=== PATIENT | female | born 1970 | race Caucasian/White ===

== ENCOUNTER → 2021-05-19 10:19 | Outpatient (BNVA) | payer BC, MEDICAID, SELFPAY | PROVIDERS: PCP Nurse Practitioner Family; Visit Provider Nurse Practitioner Family | DX: I11.0 Hypertensive heart disease with heart failure (principal); I50.9 Heart failure, unspecified; E78.5 Hyperlipidemia, unspecified; Z95.5 Presence of coronary angioplasty implant and graft; E11.59 Type 2 diabetes mellitus with other circulatory complications; N81.4 Uterovaginal prolapse, unspecified | CPT/HCPCS: 80053; 80061; 82043; 83036 ==

== ENCOUNTER → 2021-07-02 15:10 | Outpatient (BNVA) | payer BC, MEDICAID, SELFPAY | PROVIDERS: PCP Nurse Practitioner Family; Referring Provider Nurse Practitioner Family; Visit Provider Obstetrics & Gynecology | DX: R35.0 Frequency of micturition (principal) | CPT/HCPCS: 81000 ==

== ENCOUNTER 2021-09-13 10:32 | Emergency (ER) | payer BC, MEDICAID, SELFPAY ==
[2021-09-13 10:49] VITALS: BP 117/76; PULSE 77; RESP 16; TEMP 36.8; O2SAT 98; BMI 25.3
--- NOTE | 2021-09-13 11:04 | XR_ITS ---
WS: [id number] Exam: XR knee LT 3V* [id number] Date/Time of Exam: 09/13/2021 11:56 AM Reason For Exam: knee pain A total knee prosthesis is in place in satisfactory position. No sign of loosening or fracture. No conrad int effusion noted. No previous studies. XR/XR knee LT 3V* [id number] IMPRESSION: 1. Total knee replacement in satisfactory position without complication.
--- NOTE | 2021-09-13 11:57 | ED_ITS ---
HPI - General Adult General: Chief complaint: Extremity Injury, Lower Stated complaint: Lt Knee pain, hx knee surgery Time Seen by Provider: 09/13/21 11:23 History of Present Illness: Patient is a 51-year-old female with a history of total left knee replacement in 2020, CAD s/p stents x 4 presenting to the emergency room for evaluation of left-sided posterior knee pain. Patient was walking 2 days ago when she report onset of pain. Since then, patient has had difficulty standing on the left leg extending the leg. Patient reports pain in the back of the leg. Patient denies any knee swelling, knee redness, recent fall, or recent injury. Patient denies any leg swelling, chest pain, shortness breath, palpitation, nausea/vomiting, fever/chills, weakness, /GI complaints or any other complaints at this time. Onset:2 days ago Duration:2 days Location:home Severity:moderate Associated symptoms: Deny chest pain, dyspnea, nausea, rash, palpitations or vomiting Review of Systems Const: Denies: fever(s) or chills Eyes: Denies: change in vision ENMT: Denies: mouth pain Card: Denies: chest pain or palpitations Resp: Denies: dyspnea or non-productive cough GI: Denies: abdominal pain, nausea, vomiting or diarrhea : Denies: dysuria Musc: Reports: extremity pain (+L posterior knee pain) Skin/Breast: Denies: rash or new lesions Neuro: Denies: weakness in extremities Psych: Reports: other (Normal mood) Babak/Lymph: Denies: easy bruising PFS ED PFSH: Medical History CHF (congestive heart failure) Hyperlipidemia Hypertension Type 2 diabetes mellitus with cardiac complication Surgical History Hx of heart artery stent Family History Mother CAD (coronary artery disease) Hypertension Father CAD (coronary artery disease) Diabetes Family/Other Breast cancer Maternal aunt Hypertension Maternal aunts and uncles Stroke Maternal aunt Denies family history of Clotting disorder Hyperlipidemia Chronic kidney disease (CKD) Bleeding disorder Social History Smoking and tobacco status: current every day smoker Alcohol intake: never Household members: spouse Marital status: Highest education level completed: High School Graduate service: No Current occupational status: unemployed Physical Exam Const: COMMON NORMALS: alert HENMT: COMMON NORMALS: atraumatic HEAD & SCALP: atraumatic MOUTH: moist mucous membranes not abnormal Eye: COMMON NORMALS: EOMs intact bilaterally and conjunctivae normal CONJUNCTIVA: Yes conjunctivae normal Neck/C-Spine: COMMON NORMALS: full ROM and supple Resp: COMMON NORMALS: normal respiratory effort and clear to auscultation bilaterally AUSCULTATION: clear to auscultation bilaterally Cardio: COMMON NORMALS: regular rate RATE: regular rate GI: COMMON NORMALS: Soft to palpation and non-tender PALPATION: Yes Soft to palpation Extremity: COMMON NORMALS: full ROM NARRATIVE EXTREMITY EXAM: + Full range of motion of left knee, left posterior knee tenderness to palpation, tenderness of the left knee to full extension, no visible knee swelling, erythema, tenderness to palpation anteriorly. Mild tenderness palpation over the posterior aspect of the left knee. Negative Homans' sign, 2+ DP/PT pulses on the left side, sensation and strength intact on the left side. Neuro: SENSORIUM/ORIENTATION: Yes alert MOTOR EXAM: No Abnormal motor stren gth present and Other motor observations present (no focal motor deficits) Psych: COMMON NORMALS: speech normal SPEECH: Yes normal speech MOOD & AFFECT: Yes euthymic mood Course Vital Signs: Vital signs: Vital Signs Temperature 98.3 F 09/13/21 10:49 Pulse Rate 78 09/13/21 13:18 Respiratory Rate 16 09/13/21 13:18 Blood Pressure 114/71 09/13/21 13:18 Pulse Oximetry 97 09/13/21 13:18 [facility] - General Adult Medical Decision Making 51-year-old female with a history of left total knee replacement presenting to the emergency room with left posterior knee pain. Intact range of motion, and no signs of erythema, swelling, or warmth. I do not suspect that this is septic joint. No signs of erythema/warmth//swelling to suggest soft tissue infection. I also do not suspect this is a DVT given the fact that patient has no appropriate risk factors. X-rays intact for any acute findings. I suspect that this is likely bursitis versus muscle strain. No suspicion for septic bursitis given no erythema/fever/leukocytosis. Patient received Tylenol and lidocaine patch with significant improvement in symptoms. Will give patient crutches as well as a knee immobilizer for comfort should patient need it. I have given patient follow up with our medical case manager to be seen by our PCP for evaluation of posterior knee pain. Patient aware of a call from our medical case manager to schedule for appointment(s) and verbalizes understanding of the importance of following up. Rx: Tylenol, lidocaine patch, and menthol PRN pain, knee immobilizer and crutches as needed for comfort Disposition: Discharge. Patient counseled regarding diagnostic impression, treatment plan. Patient given ED strict return precautions to return for continuation, worsening, or development of new symptoms. Instructed to f/u w/ PCP regarding symptoms today. Patient verbalized understanding. Lab Data Radiology Impressions Knee X-Ray 09/13/21 11:04 IMPRESSION: 1. Total knee replacement in satisfactory position without complication. Imaging Data Other Imaging: Radiologist's impression: [address] [address] XRay Report Signed Patient: Yodit Levy Unit #: [id number] : [id number] Age/Sex: 51 / F ADM Date: 09/13/21 Loc: ER Room/Bed: Attending Dr: Ordering Provider/Ordering MD: Tru Fernandes MD Date of Service: 09/13/21 Procedure(s): XR knee LT 3V* [id number] Accession Number(s): [id number] Report Number: [id number] WS: [id number] Exam: XR knee LT 3V* [id number] Date/Time of Exam: 09/13/2021 11:56 AM Reason For Exam: knee pain A total knee prosthesis is in place in satisfactory position. No sign of loosening or fracture. No joint effusion noted. No previous studies. XR/XR knee LT 3V* [id number] IMPRESSION: 1. Total knee replacement in satisfactory position without complication. ? Dictated By: Lam Sky DO Signed By: Lam Sky DO Signed Date/Time: 09/13/21 1243 DD/ 1242 Discharge Plan Discharge Patient Disposition: Home Clinical Impression: Knee pain Condition: Stable Prescriptions: New acetaminophen 500 mg tablet 500 mg PO Q6H PRN (Reason: pain) 5 Days Qty: 20 0RF lidocaine 5 % adhesive patch,medicated 1 patch topical DAILY PRN (Reason: pain) 30 Days Qty: 30 0RF Rx Instructions: leave on most painful area for up to 12 hrs Biofreeze (menthol) 5 % gel 1 ea topical BID PRN (Reason: pain) 10 Days Qty: 1 0RF No Action cetirizine [Zyrtec] 10 mg tablet 10 mg PO DAILY PRN0RF fluticasone propionate [Allergy Relief (fluticasone)] 50 mcg/actuation spray,suspension 1 spray intranasal DAILY 0RF Rx Instructions: administer into each nostril multivitamin Tablet 1 tab PO DAILY 0RF atorvastatin 80 mg tablet 80 mg PO DAILY Qty: 90 1RF clopidogrel 75 mg tablet 75 mg PO DAILY Qty: 90 1RF furosemide 40 mg tablet 40 mg PO DAILY Qty: 90 1RF metoprolol succinate 50 mg tablet extended release 24 hr 50 mg PO DAILY Qty: 90 1RF potassium chloride 20 mEq tablet extended release 20 meq PO DAILY Qty: 90 1RF spironolactone 25 mg tablet 25 mg PO DAILY Qty: 90 1RF hydrocodone-acetaminophen 10-325 mg tablet 1 tab PO Q4H PRN0RF metformin 1,000 mg tablet See Rx Instructions .ROUTE .COMPLEX Qty: 180 0RF Dose Instruction: TAKE 1 TABLET BY MOUTH TWICE DAILY Rx Instructions: TAKE 1 TABLET BY MOUTH TWICE DAILY fenofibrate micronized 134 mg capsule See Rx Instructions .ROUTE .COMPLEX Qty: 30 0RF Dose Instruction: TAKE 1 CAPSULE BY MOUTH DAILY Rx Instructions: TAKE 1 CAPSULE BY MOUTH DAILY Discharge Orders: Discharge ED (Routine); Ordered 09/13/21 Ordered By: Tru Fernandes Referrals: Yanelis Hinojosa FNP [Primary Care Provider] - Discharge Diet: Advance as tolerated Discharge Activity: Increase activity as tolerated Patient Instructions: Knee Pain (ED) Activity Restrictions/Additional Instructions: Please come back to the emergency room you have any further knee pain. Please use warm compresses knee immobilizer and crutches as needed for comfort support. Please follow-up with your primary care provider for reassessment. Come back to the emergency room have any fever or chills, swelling, redness, further pain, or any new or concerning complaints. Stand Alone Forms: Work/School Release Coding Level of Care Code ED Desk Lieutenant for Chg Fwd Exam Comprehensive
[2021-09-13] MEDS: lidocaine 5% Patch 1 PATCH TOPICAL (12:10)
[2021-09-13] MEDS: acetaminophen 500 mg Tablet 1000 MG PO (12:11)
[2021-09-13 12:26] VITALS: BP 124/80; PULSE 67; RESP 16; O2SAT 97
[2021-09-13 13:18] VITALS: BP 114/71; PULSE 78; RESP 16; O2SAT 97
== END 2021-09-13 13:19 | disposition home or self-care (01) ==
PROVIDERS: Emergency Provider Emergency Medicine; PCP Nurse Practitioner Family
DX: M25.562 Pain in left knee (principal); Z96.652 Presence of left artificial knee joint; F17.200 Nicotine dependence, unspecified, uncomplicated; Z79.02 Long term (current) use of antithrombotics/antiplatelets; Z79.84 Long term (current) use of oral hypoglycemic drugs
CPT/HCPCS: 29530; 73562; 99283

== ENCOUNTER → 2021-10-12 08:52 | Outpatient (BNVA) | payer BC, MEDICAID, SELFPAY | PROVIDERS: PCP Nurse Practitioner Family; Referring Provider Nurse Practitioner Family; Visit Provider Orthopaedic Surgery | DX: T84.018A Broken internal joint prosthesis, other site, initial encounter (principal); Y83.8 Other surgical procedures as the cause of abnormal reaction of the patient, or of later complication, without mention of misadventure at the time of the procedure; Z96.659 Presence of unspecified artificial knee joint | CPT/HCPCS: 99203 ==

== ENCOUNTER → 2021-12-10 09:13 | Outpatient (BNVA) | payer BC, MEDICAID, SELFPAY | PROVIDERS: PCP Nurse Practitioner Family; Visit Provider Obstetrics & Gynecology | DX: Z01.812 Encounter for preprocedural laboratory examination (principal); N81.4 Uterovaginal prolapse, unspecified | CPT/HCPCS: 80053; 81000; 85025; 86850; 86900 ==

== ENCOUNTER 2021-12-15 10:52 | Observation (INO) | payer BC, MEDICAID, SELFPAY ==
[2021-12-13 08:48] VITALS: BMI 25.8
--- NOTE | 2021-12-13 09:06 | ANES.PREANE2 ---
Pre-Anesthetic Assessment Height/Weight: Height 1.68 m Weight 72.575 kg Operation Date: 12/15/21 09:15 Proposed Procedures p Anterior and posterior colporrhaphy 15549, single incision sling 44740, sacrospinous fixation 76612,N39.3,N81.4(Not Applicable) - Rigoberto Garrison MD s Posterior Repair Posterior Colporrhaphy(Not Applicable) - Rigoberto Garrison MD s Sling Single Incision Sling(Not Applicable) - Riogberto Garrison MD s Sacrospinous Ligament Suspension(Not Applicable) - Rigoberto Garrison MD Familial anesthetic complications: None Social Tobacco Exam alert, oriented x 3, clear to auscultation bilaterally and regular rate & rhythm Airway Mallampati: Class III Dentition: false and partials Pulmonary Sleep Apnea CV/HEM Coronary Artery Disease (4 stents all > 1 year ago, holding plavix), Hypertension and Myocardial Infarction able to achieve > 4 METS without sob or CP None reported Hepatic None reported GI None reported Metabolic Diabetes Mellitus and Hyperlipidemia [facility] None reported Neuropsych None reported Anesthetic Plan ASA status: 3 Anesthesia: General Risk of > 500 ml blood loss (7ml/kg in children): No Medications/Allergies Home Medications Medication Instructions Recorded Confirmed Last Taken Type cetirizine 10 mg tablet (Zyrtec) 10 mg PO DAILY PRN 05/19/21 12/13/21 Unknown History fluticasone propionate 50 1 spray INTRANASAL DAILY 05/19/21 12/13/21 Unknown History mcg/actuation nasal spray,suspension (Allergy Relief (fluticasone)) furosemide 40 mg tablet 40 mg PO DAILY #90 tab 05/19/21 12/13/21 Unknown Rx multivitamin 1 tab PO DAILY 05/19/21 12/13/21 Unknown History metformin 1,000 mg tablet See Rx Instructions .ROUTE 08/02/21 12/13/21 Unknown Rx .COMPLEX #180 tab hydrocodone 10 mg-acetaminophen 1 tab PO Q4H PRN 5 Days #20 tab 10/13/21 12/13/21 Unknown Rx 325 mg tablet fenofibrate micronized 134 mg See Rx Instructions .ROUTE 10/19/21 12/13/21 Unknown Rx capsule .COMPLEX #30 cap metoprolol succinate 50 mg See Rx Instructions .ROUTE 11/22/21 12/13/21 Unknown Rx tablet,extended release 24 hr .COMPLEX #90 tab potassium chloride 20 mEq See Rx Instructions .ROUTE 11/22/21 12/13/21 Unknown Rx tablet,extended release .COMPLEX #90 tab spironolactone 25 mg tablet See Rx Instructions .ROUTE 11/22/21 12/13/21 Unknown Rx .COMPLEX #90 tab atorvastatin 80 mg tablet See Rx Instructions .ROUTE 11/23/21 12/13/21 Unknown Rx .COMPLEX #90 tab aspirin 81 mg tablet 81 mg PO DAILY 12/13/21 12/13/21 12/08/21 History clopidogrel 75 mg tablet (Plavix) See Rx Instructions .ROUTE .COMPLEX 12/13/21 12/13/21 12/08/21 History nitroglycerin 0.4 mg sublingual 0.4 mg SUBLINGUAL Q5M PRN 12/13/21 12/13/21 Unknown History tablet Allergies Allergy/AdvReac Type Severity Reaction Status Date / Time lisinopril Allergy coughing Verified 12/10/21 08:03 Penicillins Allergy nausea Verified 12/10/21 08:03 adhesives Allergy peels Uncoded 12/10/21 08:04 skin, burn [facility] Anesthesia Medical History CHF (congestive heart failure) DJD (degenerative joint disease), cervical DJD (degenerative joint disease), lumbar Hyperlipidemia Hypertension Type 2 diabetes mellitus with cardiac complication Surgical History Hx of heart artery stent Family History Mother CAD (coronary artery disease) Hypertension Father CAD (coronary artery disease) Diabetes Family/Other Breast cancer Maternal aunt Hypertension Maternal aunts and uncles Stroke Maternal aunt Denies family history of Clotting disorder Hyperlipidemia Chronic kidney disease (CKD) Bleeding disorder Social History Smoking and tobacco status: current every day smoker Alcohol intake: never Household members: spouse Marital status: Highest education level completed: High School Graduate service: No Current occupational status: unemployed Data Anesthesia Cardiac Studies: No Data to Display
[2021-12-15] VITALS (16 sets, daily range): BP systolic 106–157; BP diastolic 62–95; PULSE 65–100; RESP 14–19; TEMP 36.4–36.9; O2SAT 92–100
[2021-12-15] MEDS: sodium chloride 0.9% 500 ML IV (08:22)
[2021-12-15 08:23] LABS: Glucose Point of Care 126 mg/dL (70-110)
[2021-12-15] MEDS: scopolamine 1.5 Patch 1 PATCH TRANSDERMA (08:23)
[2021-12-15] MEDS: enoxaparin 30 mg/0.3 mL Syringe SUBCUT (08:24)
--- NOTE | 2021-12-15 08:58 | P.ANESUD_ITS ---
Pre-Anesthetic Update Pre-Anesthetic Assessment: Date of Surgery/Procedure: 12/15/21 Preop Krystyna gnosis: Vaginal vault prolapse Proposed Procedure: Operation Date: 12/15/21 09:15 Proposed Procedures p Anterior and posterior colporrhaphy 63481, single incision sling 40906, sacrospinous fixation 89545,N39.3,N81.4(Not Applicable) - Rigoberto Garrison MD s Posterior Repair Posterior Colporrhaphy(Not Applicable) - Rigoberto Garrison MD s Sling Single Incision Sling(Not Applicable) - Rigoberto Garrison MD s Sacrospinous Ligament Suspension(Not Applicable) - Rigoberto Garrison MD Any changes to Pre-Anesthetic Assessment?: No Last Intake: Intake Last Liquid Date 12/14/21 Last Liquid Time 23:00 Last Solid Date 12/14/21 Last Solid Time 19:00 Vitals: Temperature Source Temporal Artery S can 12/15/21 07:59 Pulse Rate 65 12/15/21 07:59 Pulse Rhythm 12/15/21 07:59 Pulse Strength 3+ Normal 12/15/21 07:59 Respiratory Rate 18 12/15/21 07:59 Blood Pressure 148/79 12/15/21 07:59 Blood Pressure Liya n 102 12/15/21 07:59 Pulse Oximetry 99 12/15/21 07:59 Oxygen Delivery Me thod 12/15/21 07:59 Exam: Pre-Anes Outpt Exam: alert, oriented x 3, clear to auscultation bilaterally and regular rate & rhythm Cardiac Studies: No Data to Display
--- NOTE | 2021-12-15 08:59 | W.PM.OPSUD ---
Surgery/Procedure H&P Update DATE OF PROCEDURE: December 15, 2021 DATE H&P PERFORMED: 12/10/21 H&P UPDATE INFORMATION: I have reviewed H&P completed within last 30 days, I have examined patient prior to procedure and No changes to prior documentation PREOP DIAGNOSIS: Vaginal vault prolapse PLANNED PROCEDURE: Operation Date: 12/15/21 09:15 Proposed Procedures p Anterior and posterior colporrhaphy 25677, single incision sling 28592, sacrospinous fixation 99306,N39.3,N81.4(Not Applicable) - Rigoberto Garrison MD s Posterior Repair Posterior Colporrhaphy(Not Applicable) - Rigoberto Garrison MD s Sling Single Incision Sling(Not Applicable) - Rigoberto Garrison MD s Sacrospinous Ligament Suspension(Not Applicable) - Rigoberto Garrison MD
[2021-12-15] MEDS: sodium chloride 0.9% 1,000 ML 30 ML IV (09:08)
[2021-12-15] MEDS: vancomycin 1,000 MG in sodium chloride 0.9% 250 ML 250 MG IV (09:08)
[2021-12-15] MEDS: estrogens Conjugated Cream 30 gm 1 APPLIC VAGINAL (09:52)
--- NOTE | 2021-12-15 10:47 | PM.OP ---
Operative Report Date of procedure: December 15, 2021 Pre-op diagnosis: Preop Diagnosis Vaginal vault prolapse Post-op diagnosis: Cystocele stage III. Urethral hypermobility. Stress incontinence Cystoscopy Procedure done: Anterior colporrhaphy augmented with allograft. Single incision mid urethral sling Implants: Coloplast Altis single incision mid urethral sling. Coloplast allograft. Surgeon: Rigoberto Garrison MD Estimated blood loss (mL): 100 IV fluids (mL): 1,200 Urine output (mL): 400 Complications: none Findings: Cystocele Procedure: After obtaining informed consent, the patient was taken to the operating room and placed in the supine position, given general anesthesia, and prepped and draped in sterile fashion. The abdomen, vulva and vagina were prepped and draped in a sterile manner. A time out procedure was performed. The anterior vaginal mucosa beneath the midurethra was infiltrated with 0.5% Marcaine with epinephrine. A vertical midline incision was made beneath the midurethra, nearly 1.5 cm length. Careful submucosal dissection was performed bilaterally up to the interior portion of the inferior pubic ramus. The insertion of adductor longus tendon on the patient?s pubic ramus was identified as reference land altagracia. Palpated the notch along the internal edge of ischiopubic ramus where the adductor longus tendon and the inferior pubic ramus meet. The Altis single incision sling (SIS) was selected. Then the needle of the SIS inserted aiming at the location of this notch. One of the integrated self-fixating tips place onto the needle by sliding it over the end of the needle. The needle/sling assembly was inserted toward the location of identified reference notch making sure that the flat of the handle is perpendicular to the desired path. The needle was tracked along the posterior surface of the ischiopubic ramus until the midline altagracia on the mesh is approximately at the midline position under the urethra. The needle was removed and the same was repeated on the contralateral side until the appropriate sling tension under the urethra was achieved ensuring that the mesh lays flat. The needle was removed and vaginal incision was closed in a running interlocking fashion with 2-0 Vicryl. The vaginal mucosa was then injected in the midline with normal saline. The vaginal mucosa was scored in the midline with the Bovie approximately 1 cm medial to the urethral meatus to 1 cm distal to the vaginal cuff. This vaginal mucosa was then undermined and then incised in the midline with the Metzenbaum scissors. The lateral aspects of the vaginal mucosa were then grasped with the Allis clamps and the vaginal mucosa was then dissected off the underlying fascia with the Metzenbaum scissors. Again, there was noted to be quite a bit of oozing at the incision, which was controlled with cautery. After adequate dissection was performed, bilaterally. The Coloplast derma allograft was modified at time of application to fit spacea, 3 x 3 cm piece . Coloplast allograft was placed in front of cystocele ready to be implanted and Suture in placed at distal end of graft and placed towards vaginal cuff with 3O PDS. Final suture is placed on proximal portion of the graft to complete the placement overlying the bladder. Then Interrupted vertical mattress sutures of 0 Vicryl were used to elevate the cystocele superiorly. The excessive vaginal mucosa was then trimmed with the Metzenbaum scissors and the vaginal mucosa was then reapproximated in the running interlocking fashion with 2-0 Vicryl. Then the Nguyen catheter was removed and cystoscope was inserted. The bladder was filled with sterile water. Complete evaluation of the bladder mucosa was performed noting no lacerations, dimpling, tears, bleeding of the mucosa or muscular layers. Both ureteral orifices were identified. Prompt excretion of urine from both ureteral orifices was noted. Cystoscope was withdrawn. The Nguyen catheter was replaced. Excellent hemostasis was obtained. A vaginal pack is placed overnight as postoperative support for the vaginal tissues after graft placement and closure of vaginal incisions. Sponge, lap, needle, and instrument counts were correct times three. The patient was taken to the recovery room, awake and in stable condition.
--- NOTE | 2021-12-15 11:06 | SUR.PHASEI ---
1053 PT TO PACU 3 PT AWAKE ALERT ORIENTED TO NAME, IV TO RT AC #20 WITH NS 500ML UP AT KVO RATE, PT VERBALLY DENIES PAIN AND NAUSEA, PT WITH GOOD RESP EFFORT NOTED MONITOR WITH SR NO ECTOPY, ANDRES CATHETER TO DD WITH LT BLUE URINE NOTED STAT LOCK TO RT INNER THIGH, BILAT SCDS ON AND WORKING, ID BRACELET TO LT WRIST PT ID'D WITH 2 IDENTIFIERS [id number] PT ON RA PT CONTINUES TO DENIE PAIN AND NAUSEA, VSS UNCHANGED ABDOMEN SOFT VAGINAL PACKING IN PLACE
--- NOTE | 2021-12-15 11:15 | SUR.PHASEI ---
ANDRES CATHETER PATENT OF LT BLUE URINE, NOTED TO TUBING AND BAG, NO URETHRAL TENSION OR DRAINAGE NOTED.
--- NOTE | 2021-12-15 11:31 | SUR.PHASEI ---
1121 FAMILY UPDATED IN WR, WILL WALK UP WITH PT , PT TO FLOOR OB 12 PER CART WITH 2 RNS. PT AWAKE ALERT TALKATIVE TAKING OCC ICE CHIPS/ VSS.ABOMEN SOFT NO VAGINAL BLEEDING NOTED ANDRES PATENT
[2021-12-15] MEDS: ketorolac 30 mg/mL INJ IVP ×2 (11:46→18:44)
--- NOTE | 2021-12-15 13:42 | ANE.PACU2 ---
Inpatient post-anesthesia follow up: Airway intact: Yes Vital signs: Temperature 97.8 F Pulse Rate 69 Respiratory Rate 17 Blood Pressure 116/71 Pulse Oximetry 98 Oxygen Delivery Me thod Room Air Oxygen Flow Rate 8 Fraction of Inspir ed Oxygen Hydration adequate: Yes Nausea and vomiting: No Pain level: 1 Mental status: Baseline
[2021-12-15] MEDS: docusate sodium 100 mg Capsule PO (17:20)
[2021-12-15] MEDS: dextrose 5%-lactated ringers 1,000 ML 125 ML IV (17:21)
[2021-12-15] MEDS: HYDROcodone-acetaminophen 5-325 mg Tablet PO (22:51)
[2021-12-16] MEDS: ketorolac 30 mg/mL INJ IVP (01:11)
[2021-12-16] MEDS: dextrose 5%-lactated ringers 1,000 ML 125 ML IV (01:15)
[2021-12-16 05:45] VITALS: BP 108/68; PULSE 72; RESP 16; TEMP 36.7
[2021-12-16 06:02] LABS: Hematocrit 29.2 % (37.0-47.0); Hemoglobin 10.2 g/dL (11.5-15.3); Mean Corpuscular HGB Conc 34.9 g/dL (30.0-36.0); Mean Corpuscular Hemoglobin 30.6 pg (28.0-34.0); Mean Corpuscular Volume 87.7 fl (81-99); Mean Platelet Volume 10.6 fL (7.4-10.4); Platelet Count 254 10^3/cmm (130-400); Red Blood Count 3.33 10^6/uL (4.1-5.3); Red Cell Distribution Width 12.2 % (12.1-15.1); White Blood Count 12.7 10^3/uL (4.0-10.0)
[2021-12-16] MEDS: docusate sodium 100 mg Capsule PO (09:09)
[2021-12-16] MEDS: HYDROcodone-acetaminophen 5-325 mg Tablet PO (09:10)
[2021-12-16 10:00] VITALS: BP 125/73; PULSE 65; RESP 16; TEMP 36.6; TEMP 36.7; O2SAT 99
--- NOTE | 2021-12-16 10:27 | P.DS_ITS ---
Discharge Providers CENTER PUNCH OPERATOR Date of Admission: 12/15/21 10:52 Date of Discharge: 12/16/21 Attending Provider at Admission: Rigoberto Garrison MD Attending Provider at Discharge: Rigoberto Garrison MD Primary Care Provider: [facility] Hospital Course Mrs. Valdovinos 51-year-old female admitted for planned anterior colporrhaphy augmented with allograft, single incision mid urethral sling, possible posterior colporrhaphy and sacrospinous fixation. An anterior colporrhaphy augmented with allograft with single incision mid urethral sling was performed without complications. Overnight observation was uneventful. She is afebrile hemod ynamically stable postoperative day 1. PVR within normal limits. Tolerating diet well. Ambulating without difficulty. Physical Exam Narrative: GA: Alert and oriented ?3. HEENT: WNL. Heart: Regular rate and rhythm. Lungs: Clear to auscultation bilaterally. Abdomen: Bowel sounds present, nontender. EPIDEMIOLOGY INTERN: Scanty bleeding. Extremities: No edema, no cyanosis, no calves pain. Urinary Catheter Management: Nguyen: Cath Placed During This Visit: yes, but has since been removed by the nurse Reason for Continuing Indwelling Catheter: Decision to DC Catheter Urinary Catheter Date of Insertion: 12/15/21 Urinary Catheter Time of Insertion: 09:41 Date Urinary Catheter Removed: 12/16/21 Time Urinary Catheter Discontinued: 06:01 History History History 3 Term 2 Miscarriages/Ectopic 1 0 Living Children 2 Discharge Data Studies Completed and Pending Pending at discharge Category Date Time Status ES surgery / GI images Routine Exams 12/15/21 09:44 Taken Laboratory Results WBC 12.7 10^3/uL (4.0-10.0) H 12/16/21 05:56 Corrected WBC Cancelled 12/16/21 05:39 RBC 3.33 10^6/uL (4.1-5.3) L 12/16/21 05:56 Hgb 10.2 g/dL (11.5-15.3) L 12/16/21 05:56 Hct 29.2 % (37.0-47.0) L 12/16/21 05:56 MCV 87.7 fl (81-99) 12/16/21 05:56 MCH 30.6 pg (28.0-34.0) 12/16/21 05:56 MCHC 34.9 g/dL (30.0-36.0) 12/16/21 05:56 RDW 12.2 % (12.1-15.1) 12/16/21 05:56 Plt Count 254 10^3/cmm (130-400) 12/16/21 05:56 MPV 10.6 fL (7.4-10.4) H 12/16/21 05:56 POC Glucose 126 mg/dL (70-110) H 12/15/21 08:17 Procedures Performed Anterior colporrhaphy augmented with allograft. Single incision mid urethral sling. Cystoscopy. Vitals Last Vital Signs Temp 98.0 F 12/16/21 05:45 Pulse 72 12/16/21 05:45 Resp 16 12/16/21 05:45 BP 108/68 12/16/21 05:45 Pulse Ox 94 12/15/21 18:45 Discharge Plan Discharge Patient Disposition: Home Condition: Stable Prescriptions: New hydrocodone-acetaminophen 5-325 mg tablet 1 tab PO Q4H PRN (Reason: pain) Qty: 20 0RF acetaminophen 325 mg capsule 325 mg PO Q4H PRN (Reason: fever or pain) Qty: 60 0RF ibuprofen 800 mg tablet 800 mg PO TID PRN (Reason: pain) Qty: 60 0RF docusate sodium [Colace] 100 mg capsule 100 mg PO BID Qty: 60 0RF Continued cetirizine [Zyrtec] 10 mg tablet 10 mg PO DAILY PRN (Reason: Allergy Symptoms) 0RF fluticasone propionate [Allergy Relief (fluticasone)] 50 mcg/actuation spray,suspension 1 spray intranasal DAILY 0RF Rx Instructions: administer into each nostril multivitamin Tablet 1 tab PO DAILY 0RF furosemide 40 mg tablet 40 mg PO DAILY Qty: 90 1RF hydrocodone-acetaminophen 10-325 mg tablet 1 tab PO Q4H PRN (Reason: pain) 5 Days Qty: 20 0RF metformin 1,000 mg tablet See Rx Instructions .ROUTE .COMPLEX Qty: 180 0RF Dose Instruction: TAKE 1 TABLET BY MOUTH TWICE DAILY Rx Instructions: TAKE 1 TABLET BY MOUTH TWICE DAILY fenofibrate micronized 134 mg capsule See Rx Instructions .ROUTE .COMPLEX Qty: 30 0RF Dose Instruction: TAKE 1 CAPSULE BY MOUTH DAILY Rx Instructions: TAKE 1 CAPSULE BY MOUTH DAILY metoprolol succinate 50 mg tablet extended release 24 hr See Rx Instructions .ROUTE .COMPLEX Qty: 90 0RF Dose Instruction: TAKE 1 TABLET BY MOUTH DAILY Rx Instructions: TAKE 1 TABLET BY MOUTH DAILY spironolactone 25 mg tablet See Rx Instructions .ROUTE .COMPLEX Qty: 90 0RF Dose Instruction: TAKE 1 TABLET BY MOUTH DAILY Rx Instructions: TAKE 1 TABLET BY MOUTH DAILY potassium chloride 20 mEq tablet extended release See Rx Instructions .ROUTE .COMPLEX Qty: 90 0RF Dose Instruction: TAKE 1 TABLET BY MOUTH DAILY Rx Instructions: TAKE 1 TABLET BY MOUTH DAILY atorvastatin 80 mg tablet See Rx Instructions .ROUTE .COMPLEX Qty: 90 0RF Dose Instruction: TAKE 1 TABLET BY MOUTH DAILY Rx Instructions: TAKE 1 TABLET BY MOUTH DAILY nitroglycerin 0.4 mg Tablet, Sublingual 0.4 mg SUBLINGUAL Q5M PRN (Reason: chest pain) 0RF Rx Instructions: do not exceed 3 doses per episode aspirin 81 mg Tablet 81 mg PO DAILY 0RF Plavix 75 mg tablet See Rx Instructions .ROUTE .COMPLEX 0RF Rx Instructions: TAKE 1 TABLET BY MOUTH DAILY Discharge Orders: Discharge Order (Routine); Ordered 12/16/21 Ordered By: Rigoberto Garrison Referrals: Rigoberto Garrison MD [Physician] - 12/28/21 2:15 pm (your two week ) Discharge Diet: Usual diet Discharge Activity: Limit activity as instructed Patient Instructions: Cystoscopy (GEN), Bladder Sling for Women (GEN), Anterior Vaginal Repair (GEN), Posterior Vaginal Repair (GEN), OB Discharge Report, OB Food/Drug Interaction Guide, Opioid Safety Activity Restrictions/Additional Instructions: 1. Please call [facility] on next working day to make your post-operative appointment in 2 weeks. 2. Please stay home until you come back to the clinic on first post-operative check up. 3. Please follow instructions on your medications CAREFULLY. 4. If you have abdominal incision, do not cover it unless dressing is necessary because of drainage. OK to shower, but avoid bath. Leave steri-strips until they fall off. If they are still on one week after surgery, you may remove them. 5. If you had vaginal surgery or vaginal repair, Dr. Garrison may instruct you to take SITZ bath. 6. Yellow, blood tinged odorous vaginal discharge is usually normal after hysterectomy or vaginal surgeries. 7. No sexual intercourse, tampons, or douches until you are completely released from the post-operative care. 8. Avoid constipation by eating right and maybe using some Metamucil or Milk of Magnesia. 9. All prescription refills are given during the working hours. Please do no wait till it runs out. Call the clinic at [phone] before your medication runs out. The clinic will get in touch with your doctor to prescribe medications if necessary. 10. Please remain within 40 mile radius from our hospital because emergencies do happen now and then during the post-operative period. 11. If you have stairs at home, take one step at a time slowly and minimize the number of trips. It helps to stay in one floor for the next few days. No lifting except what you can lift by one hand until you are released from the post-operative care. 12. Driving is discouraged until you are well healed. It may be 3-4 weeks before you feel strong enough to drive. You should be able to turn and look through the rear window without pain and you should be able to push the brake pedal very hard without pain before you drive. No fast rules, but SAFETY should be your primary concern. DO NOT drive if you are on sedating medications such as narcotics. 13. Call the clinic (during working hours) to make urgent appointment or go to the Emergency room, if any of the following occurs: i. Vaginal bleeding becomes heavy, more than a period. ii. Incision becomes red and sore, or drains pus. iii. Your temperature is over 100.4 or you have chill. iv. IV site becomes red and swollen (a little ``knot?? is usually OK) v. Persistent nausea and vomiting vi. Persistent constipation or diarrhea vii. Rash or allergic reaction to medications. Discharge Attestations CENTER PUNCH OPERATOR Time Spent in Discharge Care*: greater than 30 min Coding Level of Care Code Acute Art Educator for Naveen Rincon
[2021-12-16] MEDS: acetaminophen 325 mg Tablet 650 MG PO (11:22)
[2021-12-16 12:31] VITALS: BP 116/67; PULSE 63; RESP 17; TEMP 37.1; O2SAT 99
== END 2021-12-16 12:30 | disposition home or self-care (01) ==
LOC: OBGYN 10:58
PROVIDERS: Admitting Provider Obstetrics & Gynecology; PCP Nurse Practitioner Family; Visit Provider Obstetrics & Gynecology
PROC: 0JQC0ZZ Repair Pelvic Region Subcutaneous Tissue and Fascia, Open Approach (ICD-10-PCS; CPT 57240; principal; 2021-12-15 09:05)
PROC: (CPT 57250; 2021-12-15 09:05)
PROC: (CPT 57288; 2021-12-15 09:05)
PROC: 0TJB8ZZ Inspection of Bladder, Via Natural or Artificial Opening Endoscopic (ICD-10-PCS; CPT 52000; 2021-12-15 09:05)
DX: N81.10 Cystocele, unspecified (principal); N36.41 Hypermobility of urethra; N39.3 Stress incontinence (female) (male); I25.10 Atherosclerotic heart disease of native coronary artery without angina pectoris; Z95.5 Presence of coronary angioplasty implant and graft; I10 Essential (primary) hypertension; I25.2 Old myocardial infarction; E11.9 Type 2 diabetes mellitus without complications; E78.5 Hyperlipidemia, unspecified; Z79.82 Long term (current) use of aspirin; F17.210 Nicotine dependence, cigarettes, uncomplicated
CPT/HCPCS: 57240; 57267; 57288; 36415; 36416; 51798; 82962; 85027; C1713; C1762; G0378; J0330; J1100; J1170; J1200; J1650; J1885; J2370; J2405; J2704; J2710; J3010; J3370; J3490; J7030; J7040; J7050; Q9968

== ENCOUNTER 2021-12-20 16:37 | Emergency (ER) | payer BC, MEDICAID, SELFPAY ==
--- NOTE | 2021-12-20 17:03 | XRR_ITS ---
PROCEDURE INFORMATION: Exam: XR Right Knee Exam date and time: 12/20/2021 5:12 PM Age: 51 years old Clinical indication: Pain; Knee; Right; Additional info: Fall with right knee pain TECHNIQUE: Imaging protocol: Radiologic exam of the Right knee. Views: 3 views. COMPARISON: No relevant prior studies available. FINDINGS: Bones/joints: Osseous structures are intact. Negative for fracture. Moderate DJD centered within the medial compartment. Moderate volume joint effusion. Soft tissues: Normal. XR/XR knee RT 3V* [id number] IMPRESSION: No acute findings. Moderate DJD centered within the medial compartment with moderate volume joint effusion.
[2021-12-20 17:05] VITALS: BP 112/63; PULSE 89; RESP 16; TEMP 36.4; O2SAT 97; BMI 25.8
--- NOTE | 2021-12-20 17:39 | ED_ITS ---
HPI - Fall General: Chief Complaint: Fall Stated Complaint: Fell Rt Knee Pain Time Seen by Provider: 12/20/21 17:13 History of Present Illness: Patient is a 51-year-old female comes to the ED with right knee injury. Injury occurred yesterday. Patient was walking down some steps and accidentally fell twisting her right knee. She denies any head trauma or any loss of consciousness. She had a mild swelling in her right knee and 10 out of 10 pain. She is unable to straighten right knee due to pain and says weightbearing causes worsening pain. Associated symptoms-after fall: Denies abdominal pain, chest pain, headache(s), hematuria or neck pain Review of Systems Const: Denies: fever(s), chills or fatigue Eyes: Denies: change in vision or eye discomfort ENMT: Denies: throat pain, odynophagia, nasal discharge or nasal congestion Card: Denies: chest pain, palpitations, edema, swelling of feet/ankles, dyspnea on exertion or orthopnea Resp: Denies: dyspnea, productive cough or non-productive cough GI: Denies: abdominal pain, nausea, vomiting, diarrhea, constipation or hematochezia : Denies: flank pain, dysuria or hematuria Musc: Reports: extremity pain (Right knee), extremity swelling (Right knee), joint swelling (Right knee) and limited range of motion (Right knee); Denies: neck pain or back pain Skin/Breast: Denies: rash or new lesions Neuro: Denies: headache(s), numbness in extremities or weakness in extremities PFS ED PFSH: Medical History CHF (congestive heart failure) DJD (degenerative joint disease), cervical DJD (degenerative joint disease), lumbar Hyperlipidemia Hypertension Type 2 diabetes mellitus with cardiac complication Surgical History Hx of heart artery stent Family History Mother CAD (coronary artery disease) Hypertension Father CAD (coronary artery disease) Diabetes Family/Other Breast cancer Maternal aunt Hypertension Maternal aunts and uncles Stroke Maternal aunt Denies family history of Clotting disorder Hyperlipidemia Chronic kidney disease (CKD) Bleeding disorder Social History Smoking and tobacco status: current every day smoker Alcohol intake: never Household members: spouse Marital status: Highest education level completed: High School Graduate service: No Current occupational status: unemployed Physical Exam Const: COMMON NORMALS: no acute distress, patient oriented x3, healthy appearing and alert GENERAL APPEARANCE: cooperative and comfortable HENMT: COMMON NORMALS: normocephalic HEAD & SCALP: normocephalic MOUTH: Normal oral and palatal mucosa present THROAT: posterior oropharynx normal and uvula midline Neck/C-Spine: COMMON NORMALS: supple GENERAL: Yes normal visual inspection Resp: COMMON NORMALS: normal respiratory effort, No retractions, No use of accessory muscles and clear to auscultation bilaterally AUSCULTATION: clear to auscultation bilaterally Cardio: COMMON NORMALS: regular rate, regular rhythm, S1 normal heart sound present, S2 normal heart sound present, No gallops present (Cardio), No clicks present (Cardio), No murmurs present (Cardio) and Peripheral pulses 2+ throughout RATE: regular rate RHYTHM: regular rhythm HEART SOUNDS: S1 normal heart sound present and S2 normal heart sound present PERIPHERAL PULSES: Peripheral pulses 2+ throughout GI: COMMON NORMALS: Normal to inspection, nondistended, normoactive bowel sounds present, Soft to palpation, non-tender and no masses PALPATION: Yes Soft to palpation : COMMON NORMALS: Yes no CVA tenderness BLADDER/KIDNEY EXAM: Yes no CVA tenderness Back/Pelvis: COMMON NORMALS: no CVA tenderness Extremity: NARRATIVE EXTREMITY EXAM: Right knee?generalized swelling throughout knee, tenderness throughout knee, limited range of motion especially extension of knee due to pain. Neurovascular intact distally. Neuro: COMMON NORMALS: patient oriented x3 and moves all extremities SENSORIUM/ORIENTATION: Yes alert Skin: GENERAL SKIN EXAM: dry skin Course Vital Signs: Vital signs: Vital Signs Temperature 97.5 F L 12/20/21 17:05 Pulse Rate 89 12/20/21 17:05 Respiratory Rate 16 12/20/21 17:05 Blood Pressure 112/63 12/20/21 17:05 Pulse Oximetry 97 12/20/21 17:05 MDM - Fall Medical Decision Making Patient is a 51-year-old female comes to the ED with right knee injury. Injury occurred yesterday. Patient was walking down some steps and accidentally fell twisting her right knee. Vitals are stable. Right knee?generalized swelling throughout knee, tenderness throughout knee, limited range of motion especially extension of knee due to pain. Neurovascular intact distally. X-ray of right knee showed no acute findings. moderate joint effusion and moderate DJD seen on x-ray. Patient was stable for discharge home. I placed an order with case management for patient to be referred to Dr. Sy for follow-up on right knee injury. Patient was discharged home with crutches and told to limit weightbearing until seen by Ortho. Rest, ice and elevate right knee. Return ED precautions given. Patient understood and agreed with plan. Lab Data Radiology Impressions Knee X-Ray 12/20/21 17:03 IMPRESSION: No acute findings. Moderate DJD centered within the medial compartment with moderate volume joint effusion. Discharge Plan Discharge Patient Disposition: Home Clinical Impression: Injury of knee, right Qualifiers: Encounter type: initial encounter Qualified Code(s): S89.91XA - Unspecified injury of right lower leg, initial encounter Joint effusion of knee Qualifiers: Laterality: right Qualified Code(s): M25.461 - Effusion, right knee Condition: Stable Prescriptions: No Action cetirizine [Zyrtec] 10 mg tablet 10 mg PO DAILY PRN (Reason: Allergy Symptoms) 0RF fluticasone propionate [Allergy Relief (fluticasone)] 50 mcg/actuation spray,suspension 1 spray intranasal DAILY 0RF Rx Instructions: administer into each nostril multivitamin Tablet 1 tab PO DAILY 0RF furosemide 40 mg tablet 40 mg PO DAILY Qty: 90 1RF hydrocodone-acetaminophen 10-325 mg tablet 1 tab PO Q4H PRN (Reason: pain) 5 Days Qty: 20 0RF metformin 1,000 mg tablet See Rx Instructions .ROUTE .COMPLEX Qty: 180 0RF Dose Instruction: TAKE 1 TABLET BY MOUTH TWICE DAILY Rx Instructions: TAKE 1 TABLET BY MOUTH TWICE DAILY fenofibrate micronized 134 mg capsule See Rx Instructions .ROUTE .COMPLEX Qty: 30 0RF Dose Instruction: TAKE 1 CAPSULE BY MOUTH DAILY Rx Instructions: TAKE 1 CAPSULE BY MOUTH DAILY metoprolol succinate 50 mg tablet extended release 24 hr See Rx Instructions .ROUTE .COMPLEX Qty: 90 0RF Dose Instruction: TAKE 1 TABLET BY MOUTH DAILY Rx Instructions: TAKE 1 TABLET BY MOUTH DAILY spironolactone 25 mg tablet See Rx Instructions .ROUTE .COMPLEX Qty: 90 0RF Dose Instruction: TAKE 1 TABLET BY MOUTH DAILY Rx Instructions: TAKE 1 TABLET BY MOUTH DAILY potassium chloride 20 mEq tablet extended release See Rx Instructions .ROUTE .COMPLEX Qty: 90 0RF Dose Instruction: TAKE 1 TABLET BY MOUTH DAILY Rx Instructions: TAKE 1 TABLET BY MOUTH DAILY atorvastatin 80 mg tablet See Rx Instructions .ROUTE .COMPLEX Qty: 90 0RF Dose Instruction: TAKE 1 TABLET BY MOUTH DAILY Rx Instructions: TAKE 1 TABLET BY MOUTH DAILY nitroglycerin 0.4 mg Tablet, Sublingual 0.4 mg SUBLINGUAL Q5M PRN (Reason: chest pain) 0RF Rx Instructions: do not exceed 3 doses per episode aspirin 81 mg Tablet 81 mg PO DAILY 0RF Plavix 75 mg tablet See Rx Instructions .ROUTE .COMPLEX 0RF Rx Instructions: TAKE 1 TABLET BY MOUTH DAILY ibuprofen 800 mg tablet 800 mg PO TID PRN (Reason: pain) Qty: 60 0RF hydrocodone-acetaminophen 5-325 mg tablet 1 tab PO Q4H PRN (Reason: pain) Qty: 20 0RF Colace 100 mg capsule 100 mg PO BID Qty: 60 0RF acetaminophen 325 mg capsule 325 mg PO Q4H PRN (Reason: fever or pain) Qty: 60 0RF Discharge Orders: Discharge ED (Routine); Ordered 12/20/21 Ordered By: Bubba Uriarte Referrals: Yanelis Hinojosa FNP [Primary Care Provider] - Discharge Diet: Regular Discharge Activity: Limit activity as instructed and Use walker/crutches as instructed Patient Instructions: Knee Pain (ED), Swollen Joint (ED) Activity Restrictions/Additional Instructions: Follow-up with medical provider as directed. Case management should be counting in the next 7 days set up appoint with Dr. Sy for evaluation of right knee injury. Limit weightbearing and use crutches to help with ambulation. Rest, ice and elevate right knee. Return to the ER or your medical provider if condition worsens. Please read and understand discharge instructions. Thank you for choosing [facility] for your healthcare needs today. Please realize this is an emergency room and that we are providing you with a medical screening exam and this may not be complete and all inclusive of all the testing and or work up that you may need to determine your ailment or severity of your illness. It is very important that you follow up as instructed or that you return to the Emergency Department should you have concerns or if your condition changes or worsens in any way. Coding Level of Care Code ED Forensic Science Technician for Chg Fwd Exam Comprehensive
[2021-12-20] MEDS: HYDROcodone-acetaminophen 7.5-325 mg Tablet 1 TAB PO (17:50)
--- NOTE | 2021-12-21 07:20 | DCPLANNER ---
Addendum entered by Theodora Ching 01/10/22 14:07: Patient had a follow up appointment scheduled for 12.24.21 with Judd Lopez at ortho - patient did attend appointment. Original Note: manager hematology had message to schedule a follow up appointment for patient with ortho. manager hematology sent patients information to the front office staff at ortho. Patients information will be printed and reviewed. Clinic will call patient with appointment information.
== END 2021-12-20 18:23 | disposition home or self-care (01) ==
PROVIDERS: Emergency Provider Physician Assistant; PCP Nurse Practitioner Family
DX: M25.461 Effusion, right knee (principal); Z79.84 Long term (current) use of oral hypoglycemic drugs; Z79.02 Long term (current) use of antithrombotics/antiplatelets; Z79.82 Long term (current) use of aspirin; I11.0 Hypertensive heart disease with heart failure; I50.9 Heart failure, unspecified; E78.5 Hyperlipidemia, unspecified; E11.9 Type 2 diabetes mellitus without complications; F17.210 Nicotine dependence, cigarettes, uncomplicated
CPT/HCPCS: 73562; 99283; E0114

== ENCOUNTER → 2021-12-24 08:59 | Outpatient (BNVA) | payer BC, MEDICAID, SELFPAY | PROVIDERS: PCP Nurse Practitioner Family; Referring Provider Physician Assistant; Visit Provider Nurse Practitioner Family | DX: S89.91XA Unspecified injury of right lower leg, initial encounter (principal); T84.013A Broken internal left knee prosthesis, initial encounter; Z96.652 Presence of left artificial knee joint | CPT/HCPCS: 99214 ==

== ENCOUNTER 2021-12-24 13:29 | Outpatient (CLI) | payer BC, MEDICAID, SELFPAY | END 2021-12-24 13:30 | disposition home or self-care (01) | LOC: SPT 13:34 | PROVIDERS: PCP Nurse Practitioner Family; Visit Provider Nurse Practitioner Family | DX: Z46.89 Encounter for fitting and adjustment of other specified devices (principal); S89.91XS Unspecified injury of right lower leg, sequela; X58.XXXS Exposure to other specified factors, sequela | CPT/HCPCS: L1812 ==

== ENCOUNTER → 2021-12-31 09:46 | Outpatient (BNVA) | payer BC, MEDICAID, SELFPAY | PROVIDERS: PCP Nurse Practitioner Family; Visit Provider Orthopaedic Surgery | DX: T84.093A Other mechanical complication of internal left knee prosthesis, initial encounter (principal); Y82.8 Other medical devices associated with adverse incidents | CPT/HCPCS: 99213; 99214 ==

== ENCOUNTER → 2022-01-20 10:54 | Day surgery (SDC) | payer BC, MEDICAID, SELFPAY | PROVIDERS: PCP Nurse Practitioner Family; Visit Provider Orthopaedic Surgery | DX: Z01.818 Encounter for other preprocedural examination (principal) | CPT/HCPCS: 36415; 80048; 85025; 93005 ==

== ENCOUNTER → 2022-02-08 10:41 | Outpatient (BNVA) | payer BC, MEDICAID, SELFPAY | PROVIDERS: PCP Nurse Practitioner Family; Visit Provider Orthopaedic Surgery | DX: M25.562 Pain in left knee (principal) | CPT/HCPCS: 73560; 99213; 99214 ==

== ENCOUNTER → 2022-03-28 08:23 | Outpatient (BNVA) | payer BC, MEDICAID, SELFPAY | PROVIDERS: PCP Nurse Practitioner Family; Visit Provider Nurse Practitioner Family | DX: I10 Essential (primary) hypertension (principal); Z79.899 Other long term (current) drug therapy | CPT/HCPCS: 80053; 80061; 85025 ==

== ENCOUNTER 2022-03-30 10:18 | Observation (INO) | payer BC, MEDICAID, SELFPAY ==
[2022-03-30] VITALS (27 sets, daily range): BP systolic 107–136; BP diastolic 52–75; PULSE 58–84; RESP 10–28; TEMP 36.6–36.7; O2SAT 96–100; BMI 25.0
--- NOTE | 2022-03-30 10:32 | ECG_ITS ---
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 Measurements Intervals [place] Rate: 87 P: 43 NV: 136 QRS: 54 QRSD: 89 T: 39 QT: 347 QTc: 419 Interpretive Statements SINUS RHYTHM Compared to ECG 01/20/2022 11:09:50 No significant changes Electronically Signed On 03-31-2022 12:56:51 CDT by Luly Singleton M.D. [email or web address] Missilekansas city va medical centerWeavlyselect medical specialty [facility], inc.[employer]/store/NU/[id number] f
--- NOTE | 2022-03-30 10:32 | XRR_ITS ---
PROCEDURE INFORMATION: Exam: XR Chest Exam date and time: 03/30/2022 10:49 AM Age: 52 years old Clinical indication: Pain; Angina pectoris; Additional info: Chest pain TECHNIQUE: Imaging protocol: Radiologic exam of the chest. Views: 1 view. COMPARISON: ES surgery / GI images 12/15/2021 10:21 AM FINDINGS: Lungs: Unremarkable. No consolidation. Pleural spaces: Unremarkable. No pleural effusion. No pneumothorax. Heart/Mediastinum: Unremarkable. No cardiomegaly. Bones/joints: Unremarkable. XR/XR chest 1V portable [id number] IMPRESSION: No acute findings.
[2022-03-30 11:08] LABS: Basophils # 0.1 10^3/uL (0.0-0.1); Basophils % 1.2 %; Eosinophils # 0.3 10^3/uL (0.0-0.8); Eosinophils % 2.7 %; Hematocrit 42.8 % (37.0-47.0); Hemoglobin 13.9 g/dL (11.5-15.3); Lymphocytes # 3.4 10^3/uL (0.8-4.8); Lymphocytes % 36.6 %; Mean Corpuscular HGB Conc 32.5 g/dL (30.0-36.0); Mean Corpuscular Volume 95.3 fl (81-99); Mean Platelet Volume 10.5 fL (7.4-10.4); Monocytes # 0.5 10^3/uL (0.2-0.9); Monocytes % 5.6 %; Neutrophils # 4.94 10^3/uL (1.8-7.7); Neutrophils % 53.6 %; Nucleated Red Blood Cells % 0 %; Platelet Count 315 10^3/cmm (130-400); Red Blood Count 4.49 10^6/uL (4.1-5.3); Red Cell Distribution Width 13.2 % (12.1-15.1); White Blood Count 9.2 10^3/uL (4.0-10.0)
[2022-03-30 11:27] LABS: Troponin(5th) Baseline 6 ng/L (0-10)
[2022-03-30 11:41] LABS: Alanine Aminotransferase 20 U/L (0-33); Albumin Level 4.4 g/dL (3.5-5.2); Alkaline Phosphatase 51 U/L (35-105); Blood Urea Nitrogen 7 mg/dL (6-20); Calcium 9.3 mg/dL (8.5-10.5); Carbon Dioxide 17 mmol/L (22-29); Globulin 2.8 g/dL (1.3-4.6); Glomerular Filtration Rate 104.2 mL/min (90-130); Glucose 100 mg/dL (65-115); NT Pro B Type Natriuretic Pept 22 pg/mL (0-125); Total Bilirubin 0.3 mg/dL (0.15-1.2); Total Protein 7.2 g/dL (6.6-8.7)
[2022-03-30 11:59] LABS: Aspartate Amino Transferase 24 U/L (0-32)
[2022-03-30 12:11] LABS: Anion Gap 20.1 (5-19); Chloride 101 mmol/L (98-107); Osmolality Calculated 276 mOsm/kg (285-295); Potassium 4.1 mmol/L (3.5-5.1); Sodium 134 mmol/L (136-145)
--- NOTE | 2022-03-30 12:19 | PC.NURSE ---
Patient rounded on in patient waiting room. Patient stable and denies changes. No further needs at this time.
[2022-03-30 13:55] LABS: Troponin 5 2HR Delta 0 ABS# (0-10)
--- NOTE | 2022-03-30 15:01 | ECG_ITS ---
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 Measurements Intervals [place] Rate: 72 P: 48 OK: 152 QRS: 49 QRSD: 93 T: 39 QT: 394 QTc: 431 Interpretive Statements SINUS RHYTHM Compared to ECG 03/30/2022 10:25:18 No significant changes Electronically Signed On 03-31-2022 13:00:39 CDT by Luly Singleton M.D. [email or web address] hospital.[email or web address]store/[id number]
--- NOTE | 2022-03-30 15:26 | W.ED.GENADLT ---
HPI - General Adult General: Chief complaint: Chest Pain Stated complaint: chest pain Time Seen by Provider: 03/30/22 15:25 History of Present Illness: Patient is a 52-year-old female with history of CAD with stent x4 currently not followed by cardiology, CHF, smoking, diabetes who presents emergency room with complaints of chest pressure since 9 AM this morning. 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 Patient states that she has had multiple stools today. Patient tells me that she currently does not follow-up with cardiology. Patient compliant with Plavix for her stents. Last time patient had a stent placed was 2014. Patient has not had any recent cardiac evaluation since then. Patient reports exertional dyspnea, denies any pleuritic chest pain, hemoptysis, fever/chills, cough, runny nose or sore throat. Patient has no complaints abdominal pain, nausea/vomiting, diarrhea melena or hematochezia. No other complaints today including recent surgery, immobilization or leg swelling. Onset:9am Duration:intermittent ongoing Location:work Severity:moderate Associated symptoms: Reports chest pain and dyspnea; Deny nausea, rash, palpitations or vomiting Review of Systems Const: Denies: fever(s) or chills Eyes: Denies: change in vision ENMT: Denies: mouth pain Card: Reports: chest pain; Denies: palpitations Resp: Reports: dyspnea; Denies: non-productive cough GI: Denies: abdominal pain, nausea, vomiting or diarrhea : Denies: dysuria Musc: Denies: extremity pain Skin/Breast: Denies: rash or new lesions Neuro: Reports: other (+light-headedness); Denies: weakness in extremities Psych: Reports: other (Normal mood) Babak/Lymph: Denies: easy bruising PFSH ED PFSH: Medical History Aftercare following surgery of the genitourinary system CHF (congestive heart failure) DJD (degenerative joint disease), cervical DJD (degenerative joint disease), lumbar Hyperlipidemia Hypertension Type 2 diabetes mellitus with cardiac complication Surgical History H/O of anterior colporrhaphy (~12/15/21) 12/15/2021- anterior colporrhaphy augmented with allograft, single incision mid urethral sling performed by Dr. Garrison at [facility] History of cholecystectomy History of lumpectomy of left breast fatty tumor History of partial hysterectomy Hx of heart artery stent Family History Mother CAD (coronary artery disease) Hypertension Father CAD (coronary artery disease) Diabetes Family/Other Breast cancer Maternal aunt Hypertension Maternal aunts and uncles Stroke Maternal aunt Denies family history of Clotting disorder Hyperlipidemia Chronic kidney disease (CKD) Bleeding disorder Social History Smoking and tobacco status: current every day smoker Alcohol intake: never Household members: spouse Marital status: Highest education level completed: High School Graduate service: No Current occupational status: unemployed Physical Exam Const: COMMON NORMALS: alert HENMT: COMMON NORMALS: atraumatic HEAD & SCALP: atraumatic MOUTH: moist mucous membranes not abnormal Eye: COMMON NORMALS: EOMs intact bilaterally and conjunctivae normal CONJUNCTIVA: Yes conjunctivae normal Neck/C-Spine: COMMON NORMALS: full ROM and supple Resp: COMMON NORMALS: normal respiratory effort and clear to auscultation bilaterally AUSCULTATION: clear to auscultation bilaterally Cardio: COMMON NORMALS: regular rate RATE: regular rate OTHER: 2+ radial pulses b/l GI: COMMON NORMALS: Soft to palpation and non-tender PALPATION: Yes Soft to palpation OTHER: No focal TTP. NO guarding rebound, guarding, rigidity. No CVA tenderness to percussion. Neg Goodwin/Neg McBurney's point tenderness, no suprabupic tenderness to palpation. Extremity: COMMON NORMALS: full ROM Neuro: SENSORIUM/ORIENTATION: Yes alert MOTOR EXAM: No Abnormal motor strength present and Other motor observations present (no focal motor deficits) Psych: COMMON NORMALS: speech normal SPEECH: Yes normal speech MOOD & AFFECT: Yes euthymic mood Course Vital Signs: Vital signs: Vital Signs Temperature 98.1 F 03/30/22 10:28 Pulse Rate 68 03/30/22 15:00 Respiratory Rate 18 03/30/22 10:28 Blood Pressure 120/58 03/30/22 15:00 Pulse Oximetry 97 03/30/22 15:00 Oxygen Delivery Me thod 03/30/22 15:00 MDM - General Adult Medical Decision Making Patient is a 52-year-old female with history of CAD with stent x4 currently not followed by cardiology, CHF, smoking, diabetes who presents emergency room with complaints of chest pressure since 9 AM this morning. Patient has had intermittent pressure since then. Currently 2 out of 10 chest pain. Patient received aspirin in the ER. Troponin x2 with delta less than 5. Patient has not had any recent cardiac evaluation in the setting of multiple stents, diabetes and smoking, patient will be admitted to hospital for further evaluation and possible stress test. XR chest appears to be clear. Disposition: observation Lab Data : 03/30/22 10:52 03/30/22 10:52 Radiology Impressions Chest X-Ray 03/30/22 10:32 IMPRESSION: No acute findings. Laboratory Results WBC 9.2 10^3/uL (4.0-10.0) 03/30/22 10:52 RBC 4.49 10^6/uL (4.1-5.3) 03/30/22 10:52 Hgb 13.9 g/dL (11.5-15.3) 03/30/22 10:52 Hct 42.8 % (37.0-47.0) 03/30/22 10:52 MCV 95.3 fl (81-99) 03/30/22 10:52 MCH 31.0 pg (28.0-34.0) 03/30/22 10:52 MCHC 32.5 g/dL (30.0-36.0) 03/30/22 10:52 RDW 13.2 % (12.1-15.1) 03/30/22 10:52 Plt Count 315 10^3/cmm (130-400) 03/30/22 10:52 MPV 10.5 fL (7.4-10.4) H 03/30/22 10:52 Neut % (Auto) 53.6 % 03/30/22 10:52 Lymph % (Auto) 36.6 % 03/30/22 10:52 Dubois % (Auto) 5.6 % 03/30/22 10:52 Eos % (Auto) 2.7 % 03/30/22 10:52 Baso % (Auto) 1.2 % 03/30/22 10:52 Neut # (Auto) 4.94 10^3/uL (1.8-7.7) 03/30/22 10:52 Lymph # (Auto) 3.4 10^3/uL (0.8-4.8) 03/30/22 10:52 Dubois # (Auto) 0.5 10^3/uL (0.2-0.9) 03/30/22 10:52 Eos # (Auto) 0.3 10^3/uL (0.0-0.8) 03/30/22 10:52 Baso # (Auto) 0.1 10^3/uL (0.0-0.1) 03/30/22 10:52 Nucleated RBC % (auto) 0 % 03/30/22 10:52 Nucleated RBCs # 0.0 /100WBC 03/30/22 10:52 Sodium 134 mmol/L (136-145) L 03/30/22 10:52 Potassium 4.1 mmol/L (3.5-5.1) 03/30/22 10:52 Chloride 101 mmol/L (98-107) 03/30/22 10:52 Carbon Dioxide 17 mmol/L (22-29) L 03/30/22 10:52 Anion Gap 20.1 (5-19) H 03/30/22 10:52 BUN 7 mg/dL (6-20) 03/30/22 10:52 Creatinine 0.6 mg/dL (0.5-0.9) 03/30/22 10:52 GFR Calculation 104.2 mL/min (90-130) 03/30/22 10:52 Glucose 100 mg/dL (65-115) 03/30/22 10:52 Calculated Osmolality 276 mOsm/kg (285-295) L 03/30/22 10:52 Calcium 9.3 mg/dL (8.5-10.5) 03/30/22 10:52 Total Bilirubin 0.3 mg/dL (0.15-1.2) 03/30/22 10:52 AST 24 U/L (0-32) 03/30/22 10:52 ALT 20 U/L (0-33) 03/30/22 10:52 Alkaline Phosphatase 51 U/L (35-105) 03/30/22 10:52 Troponin T Baseline 6 ng/L (0-10) 03/30/22 10:52 Troponin T 120 Minute 6.00 ng/L (0-10) 03/30/22 13:00 Delta Troponin T 0 ABS# (0-10) 03/30/22 13:00 NT-Pro-B Natriuret Pep 22 pg/mL (0-125) 03/30/22 10:52 Total Protein 7.2 g/dL (6.6-8.7) 03/30/22 10:52 Albumin 4.4 g/dL (3.5-5.2) 03/30/22 10:52 Globulin 2.8 g/dL (1.3-4.6) 03/30/22 10:52 Imaging Data Other Imaging: Radiologist's impression: [employer] [address] XRay Report Signed Patient: Yodit Levy Unit #: [id number] : 1970 Age/Sex: 52 / F ADM Date: 03/30/22 Loc: ER Room/Bed: Attending Dr: Ordering Provider/Ordering MD: Russell Engle DO Date of Service: 03/30/22 Procedure(s): XR chest 1V portable [id number] Accession Number(s): [id number] Report Number: [id number] PROCEDURE INFORMATION: Exam: XR Chest Exam date and time: 03/30/2022 10:49 AM Age: 52 years old Clinical indication: Pain; Angina pectoris; Additional info: Chest pain TECHNIQUE: Imaging protocol: Radiologic exam of the chest. Views: 1 view. COMPARISON: ES surgery / GI images 12/15/2021 10:21 AM FINDINGS: Lungs: Unremarkable. No consolidation. Pleural spaces: Unremarkable. No pleural effusion. No pneumothorax. Heart/Mediastinum: Unremarkable. No cardiomegaly. Bones/joints: Unremarkable. XR/XR chest 1V portable [id number] IMPRESSION: No acute findings. ? Dictated By: Kevin Cho Signed By: Kevin Cho Signed Date/Time: 03/30/22 1141 DD/ 1049 Discharge Plan Discharge Condition: Stable Prescriptions: No Action cetirizine [Zyrtec] 10 mg tablet 10 mg PO DAILY fluticasone propionate [Allergy Relief (fluticasone)] 50 mcg/actuation spray,suspension 1 spray intranasal DAILY PRN (Reason: Allergy Symptoms) Rx Instructions: administer into each nostril multivitamin Tablet 1 tab PO DAILY (DME) HINGED KNEE BRACE - RIGHT See Rx Instructions .Route .MEDSUPPLY Qty: 1 0RF Rx Instructions: As directed Linzess 72 mcg capsule 72 mcg PO DAILY Qty: 30 0RF hydrocodone-acetaminophen 10-325 mg tablet 1 tab PO Q4H PRN (Reason: pain) 5 Days Qty: 20 0RF furosemide 40 mg tablet 40 mg PO DAILY Qty: 90 0RF nitroglycerin 0.4 mg Tablet, Sublingual 0.4 mg SUBLINGUAL Q5M PRN (Reason: chest pain) Rx Instructions: do not exceed 3 doses per episode metoprolol succinate 50 mg tablet extended release 24 hr 50 mg PO DAILY spironolactone 25 mg tablet 25 mg PO DAILY fenofibrate micronized 134 mg capsule 134 mg PO QPM metformin 1,000 mg tablet 1,000 mg PO BID potassium chloride 20 mEq tablet extended release 20 meq PO DAILY Aspir-81 81 mg Tablet,Delayed Release (Dr/Ec) 81 mg PO DAILY Fish Oil 500 mg Capsule 500 mg PO QPM atorvastatin 80 mg tablet 80 mg PO QPM Plavix 75 mg tablet 75 mg PO QPM Referrals: Yanelis Hinojosa FNP [Primary Care Provider] - Coding Level of Care Code ED Network Program Manager for Chg Fwd Exam Comprehensive
--- NOTE | 2022-03-30 16:32 | ECG_ITS ---
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 Measurements Intervals [place] Rate: 61 P: 28 WI: 153 QRS: 31 QRSD: 91 T: 30 QT: 418 QTc: 424 Interpretive Statements SINUS RHYTHM Compared to ECG 03/30/2022 15:01:22 No significant changes Electronically Signed On 03-31-2022 12:59:41 CDT by Luly Singleton M.D. [email or web address] [email or web address] [email or web address] [id number]
[2022-03-30] MEDS: aspirin 325 mg Tablet PO (17:21)
[2022-03-30 17:36] LABS: Troponin 5 6HR Delta 0 ng/L (0-12)
--- NOTE | 2022-03-30 18:04 | USCV_ITS ---
Cam Yodit Age: 52 Gender: F : 1970 Exam Date: 03/30/2022 18:32 Ordering Phys: Gloria Carter MD Technologist: VALE Exam Location: [facility] Indication: chest pain today. History of cardiac stenting 2014. DM. HTN. long-term smoker, continues smoking. BP: 107 / 64 HR: 62 Rhythm: Sinus Technical Quality: Adequate MEASUREMENTS (Male / Female) Normal Values 2D ECHO LV Diastolic Diameter PLAX 4.3 cm 4.2 - 5.9 / 3.9 - 5.3 cm LV Systolic Diameter PLAX 2.7 cm IVS Diastolic Thickness 1.3 cm 0.6 - 1.0 / 0.6 - 0.9 cm IVS Systolic Thickness 1.7 cm LVPW Diastolic Thickness 1.0 cm 0.6 - 1.0 / 0.6 - 0.9 cm LVPW Systolic Thickness 1.6 cm LVOT Diameter 2.1 cm LV Ejection Fraction 2D Teich 60.7 % LV Ejection Fraction MOD 2C 80.7 % LV Ejection Fraction 2C AL 83.9 % LA Diameter 3.4 cm LA Width 3.6 cm LA Height 5.6 cm RA Width 2.9 cm RA Height 4.1 cm Aorta at Sinotubular Diameter 2.8 cm IVC Diameter 1.9 cm M-MODE Aortic Annulus Diameter 2.7 cm LA Ao Ratio MM 1.3 MV E Point Septal Separation 0.2 cm DOPPLER AV Peak Velocity 123.0 cm/s LVOT Peak Velocity 118.0 cm/s AV Area Cont Eq vti 3.5 cm squared AV Area Cont Eq pk 3.5 cm squared MV Area PHT 4.8 cm squared Mitral E to A Ratio 1.1 MV E' Velocity 45.5 cm/s Mitral E to MV E' Ratio 6.9 Mitral E to LV E' Lateral Ratio 5.8 Mitral E to LV E' Septal Ratio 8.6 TR Peak Velocity 232.2 cm/s TR Peak Gradient 21.6 mmHg TV Peak E Velocity 69.0 cm/s Right Atrial Pressure 5.0 mmHg Pulmonary Artery Systolic Pressu 26.6 mmHg PV Peak Velocity 101.0 cm/s RV Acceleration Time 0.1 s RV Ejection Time 0.4 s RV AcT/ET 0.4 FINDINGS Left Ventricle Normal left ventricular size, systolic function and mildly increased wall thickness, with no regional wall motion abnormalities. Left ventricular ejection fraction is estimated at 70 %. Normal diastolic function. Right Ventricle Normal right ventricular size and systolic function. Right ventricular systolic pressure 25 mmHg. Right Atrium Normal right atrial size. Left Atrium Normal left atrial size. Mitral Valve Structurally normal mitral valve. No mitral valve stenosis. Trace to mild mitral valve regurgitation. Aortic Valve Structurally normal trileaflet aortic valve. No aortic valve stenosis. No aortic valve regurgitation. Tricuspid Valve Structurally normal tricuspid valve. No tricuspid valve stenosis. Trace to mild tricuspid valve regurgitation. Pulmonic Valve Pulmonic valve not well visualized. No pulmonary valve stenosis. No pulmonary valve regurgitation. Pericardium No pericardial effusion. Aorta Normal size aortic root and proximal ascending aorta. IVC Normal IVC dimension with >50% respiratory change of the inferior vena cava. CONCLUSIONS 1. Normal left ventricular size, systolic function and mildly increased wall thickness, with no regional wall motion abnormalities. Left ventricular ejection fraction is estimated at 70 %. Normal diastolic function. 2. Trace to mild tricuspid and mitral valve regurgitation. 3. Pulmonary artery pressure estimated at 25 mm Hg. 4. No prior similar studies to compare. Luly Singleton MD (Electronically Signed) Final Date: 31 March 2022 12:10 S
--- NOTE | 2022-03-30 18:04 | PM.HP ---
Providers/Chief Complaint Primary Care Provider: GUY Weinberg Chief Complaint: chest pain History of Present Illness Yodit Levy is a 52 year old female With past medical history of coronary artery disease status post LISA x4, degenerative disc disease, hyperlipidemia, hypertension, type 2 diabetes mellitus, congestive heart failure unsure of details presented to the hospital today with complaint of sharp chest pain that was occurring in the middle of her chest. She states she took nitro this morning but it did not help the pain at all. The pain started around 830 this a.m. she said it was intermittent and comes and goes and it feels like a pressure-like pain. She has had an NJ in the past and the pain does not feel like that. She also states she has been struggling with acid reflux for some time now. She received 4 stents at age [age] years old and now she is 52. She states she moved from [place] a few years ago but has not establish care with a sample stitcher in [place] yet. Her sample stitcher and [place] was Dr. Amezcua with [facility]. At this time she is not really having the pain but did feel a pressure like sensation a little while ago. 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 The pain came on this morning when she was cooking. It also went away on its own. There were no alleviating or exacerbating factors. Due to her extensive cardiac history she was concerned and therefore came to the hospital. On arrival blood pressure 120/58, respiratory to 18, pulse 60, temperature 98 1, saturating 97% on room air chest x-ray did not show any acute findings. Sodium 134, potassium 4.1, white count 9.2. Patient was ordered GI cocktail x1 in the ER. Troponins negative x2. EKG showed sinus rhythm. Medications/Allergies Home Medications Medication Instructions Recorded Confirmed Last Taken Type cetirizine 10 mg tablet (Zyrtec) 10 mg PO DAILY 05/19/21 03/30/22 Unknown History fluticasone propionate 50 1 spray intranasal DAILY PRN 05/19/21 03/30/22 Unknown History mcg/actuation nasal Allergy Symptoms spray,suspension (Allergy Relief (fluticasone)) multivitamin 1 tab PO DAILY 05/19/21 03/30/22 03/30/22 History nitroglycerin 0.4 mg sublingual 0.4 mg sublingual Q5M PRN chest 12/13/21 03/30/22 03/30/22 History tablet pain HINGED KNEE BRACE - RIGHT #1 ea 12/24/21 03/30/22 Unknown Rx linaclotide 72 mcg capsule 72 mcg PO DAILY #30 caps 02/23/22 03/30/22 Unknown Rx (Linzess) hydrocodone 10 mg-acetaminophen 1 tab PO Q4H PRN pain 5 days #20 03/04/22 03/30/22 Unknown Rx 325 mg tablet tabs furosemide 40 mg tablet 40 mg PO DAILY #90 tabs 03/21/22 03/30/22 03/30/22 Rx fenofibrate micronized 134 mg 134 mg PO QPM 03/28/22 03/30/22 03/29/22 History capsule metformin 1,000 mg tablet 1,000 mg PO BID 03/28/22 03/30/22 03/30/22 History metoprolol succinate 50 mg 50 mg PO DAILY 03/28/22 03/30/22 03/30/22 History tablet,extended release 24 hr potassium chloride 20 mEq 20 meq PO DAILY 03/28/22 03/30/22 03/30/22 History tablet,extended release spironolactone 25 mg tablet 25 mg PO DAILY 03/28/22 03/30/22 03/30/22 History aspirin 81 mg tablet,delayed 81 mg PO DAILY 03/30/22 03/30/22 03/30/22 History release atorvastatin 80 mg tablet 80 mg PO QPM 03/30/22 03/30/22 03/29/22 History clopidogrel 75 mg tablet (Plavix) 75 mg PO QPM 03/30/22 03/30/22 03/29/22 History omega-3 fatty acids 500 mg capsule 500 mg PO QPM 03/30/22 03/30/22 03/29/22 History Allergies Allergy/AdvReac Type Severity Reaction Status Date / Time lisinopril Allergy coughing Verified 03/30/22 16:33 Penicillins Allergy nausea Verified 03/30/22 16:33 adhesives Allergy peels Uncoded 03/28/22 09:43 skin, burn PFSH Acute PFSH: Medical History Aftercare following surgery of the genitourinary system CHF (congestive heart failure) DJD (degenerative joint disease), cervical DJD (degenerative joint disease), lumbar Hyperlipidemia Hypertension Type 2 diabetes mellitus with cardiac complication Surgical History H/O of anterior colporrhaphy (~12/15/21) 12/15/2021- anterior colporrhaphy augmented with allograft, single incision mid urethral sling performed by Dr. Garrison at [facility] History of cholecystectomy History of lumpectomy of left breast fatty tumor History of partial hysterectomy Hx of heart artery stent Family History Mother CAD (coronary artery disease) Hypertension Father CAD (coronary artery disease) Diabetes Family/Other Breast cancer Maternal aunt Hypertension Maternal aunts and uncles Stroke Maternal aunt Denies family history of Clotting disorder Hyperlipidemia Chronic kidney disease (CKD) Bleeding disorder Social History Smoking and tobacco status: current every day smoker Alcohol intake: never Household members: spouse Marital status: Highest education level completed: High School Graduate service: No Current occupational status: unemployed Vitals/I&O/Wt Last Vital Signs Temp 98.1 F 03/30/22 10:28 Pulse 66 03/30/22 17:25 Resp 14 03/30/22 17:25 BP 107/64 03/30/22 17:25 Pulse Ox 100 03/30/22 17:25 O2 Del Method 03/30/22 15:00 Weight last 48 hrs Weight 70.307 kg Physical Exam Narrative: General: Alert oriented x3, patient seen sitting up in bed appearing slightly anxious. No acute distress HEENT: Normocephalic, atraumatic, EOMI, breathing comfortably on room air. Cardio: Regular rate rhythm, normal S1-S2, no murmurs rubs gallops, Respiratory: Good bilateral air entry, no wheezes no rhonchi appreciated GI: Abdomen soft, nontender, nondistended, bowel sounds + Behavior: Appropriate and cooperative Extremities: Pulses 2+, no edema, no cyanosis Data : 03/30/22 10:52 03/30/22 10:52 A&P Assessment and plan (1) Hyperlipidemia: (2) Hypertension: (3) Type 2 diabetes mellitus with cardiac complication: (4) CHF (congestive heart failure): (5) Hyperlipidemia: (6) Smoker: Plan #Chest pain #History of coronary artery disease status post LISA x4 in 2015 #History of congestive heart failure, unspecified, unknown systolic or diastolic #Diabetes mellitus type 2 #Hyperlipidemia #Hypertension #Recently having GERD -Patient's chest pain is atypical. She does feel like a pressure but is also anxious. Troponins are negative. Patient does not have any alleviating or exacerbating factors. It has been intermittent. He does not feel like her cardiac chest pain that she had when she had an NJ 7 years ago. It is not reproducible palpation. Currently not having any chest pain. Does report she has been having trouble with GERD in recent past. ? Troponins negative. EKG nonischemic. Not relieved by nitro. Will order GI cocktail x1 and see response. 6 hour trop pending. ? If chest pain to recur, will order another troponin EKG ? Stress test in a.m. ? Check echo ? Request records from her sample stitcher in [place] ? N.p.o. at midnight for stress test in a.m. ? Continue all home medications Full code DVT prophylaxis: heparin Attestations Medical Necessity Statement*: Observation for cardiac stress test. Coding Level of Care Code Acute Fur Blowing Machine Attendant for Chg Fwd Diagnoses Hyperlipidemia E78.5 Hypertension I10 Type 2 diabetes mellitus with cardiac complication E11.59 CHF (congestive heart failure) I50.9 Hyperlipidemia E78.5 Smoker F17.200
[2022-03-30 18:50] LABS: Chol HDL Ratio 5.52 mg/dL (0.0-4.40); Cholesterol 160 mg/dL (0-200); HDL Cholesterol 29 mg/dL (60-100); LDL Cholesterol Calculated 89 mg/dL (50-129); LDL HDL Ratio 3.07 RATIO (0.00-3.22); NT Pro B Type Natriuretic Pept 19 pg/mL (0-125); Thyroid Stimulating Hormone 0.39 uIU/mL (0.27-4.20); Triglycerides 211 mg/dL (0-150)
--- NOTE | 2022-03-30 19:05 | PC.NURSE ---
Report from Samanta HOBSON. Pt assisted to restroom. NAD. Rates pain 07/29. Ordered meds given.
[2022-03-30] MEDS: lidocaine 2% viscous 15 ML, aluminum-mag hydrox-simethicon 30 ML, sucralfate oral liq 1 GM PO (19:45)
[2022-03-30] MEDS: heparin 5,000 unit/mL INJ 1 mL 5000 UNIT SUBCUT (19:47)
[2022-03-30 21:20] LABS: Glucose Point of Care 107 mg/dL (70-110)
[2022-03-30] MEDS: pneumococcal (23 valent) SDV 0.5 mL IM (22:07)
[2022-03-31] VITALS (8 sets, daily range): BP systolic 101–121; BP diastolic 55–74; PULSE 68–88; RESP 15–17; TEMP 36.3–36.9; O2SAT 94–96
[2022-03-31 05:20] LABS: Basophils # 0.1 10^3/uL (0.0-0.1); Basophils % 0.7 %; Eosinophils # 0.4 10^3/uL (0.0-0.8); Eosinophils % 3.6 %; Hematocrit 38.7 % (37.0-47.0); Lymphocytes # 2.5 10^3/uL (0.8-4.8); Lymphocytes % 21.1 %; Mean Corpuscular HGB Conc 33.6 g/dL (30.0-36.0); Mean Corpuscular Hemoglobin 30.5 pg (28.0-34.0); Mean Corpuscular Volume 90.8 fl (81-99); Mean Platelet Volume 10.6 fL (7.4-10.4); Monocytes # 0.7 10^3/uL (0.2-0.9); Monocytes % 6.1 %; Neutrophils # 8.15 10^3/uL (1.8-7.7); Neutrophils % 67.9 %; Nucleated Red Blood Cells % 0 %; Platelet Count 320 10^3/cmm (130-400); Red Blood Count 4.26 10^6/uL (4.1-5.3); Red Cell Distribution Width 13.2 % (12.1-15.1)
[2022-03-31 05:34] LABS: Estmated Average Glucose 120; Hemoglobin A1C 5.8 % (4.0-6.0)
[2022-03-31 05:44] LABS: Alanine Aminotransferase 19 U/L (0-33); Albumin Level 3.8 g/dL (3.5-5.2); Alkaline Phosphatase 65 U/L (35-105); Anion Gap 13.7 (5-19); Aspartate Amino Transferase 20 U/L (0-32); Blood Urea Nitrogen 10 mg/dL (6-20); Calcium 8.9 mg/dL (8.5-10.5); Carbon Dioxide 24 mmol/L (22-29); Chloride 103 mmol/L (98-107); Globulin 2.6 g/dL (1.3-4.6); Glomerular Filtration Rate 104.2 mL/min (90-130); Glucose 135 mg/dL (65-115); Osmolality Calculated 285 mOsm/kg (285-295); Potassium 3.7 mmol/L (3.5-5.1); Sodium 137 mmol/L (136-145); Total Bilirubin 0.2 mg/dL (0.15-1.2); Total Protein 6.4 g/dL (6.6-8.7)
[2022-03-31] MEDS: heparin 5,000 unit/mL INJ 1 mL 5000 UNIT SUBCUT (05:55)
--- NOTE | 2022-03-31 06:12 | ECG_ITS ---
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 Interpretive Statements NAME OF STUDY: LEXISCAN SESTAMIBI STRESS TEST INDICATION: Chest Pain/HX OF CAD, PROCEDURE: At the baseline, the EKG revealed normal sinus rhythm with a poor R wave progression.. The baseline heart was 74 bpm with a blood pressue of 108/61 mm of Hg Lexiscan was infused over a period of 20 seconds. A total of 0.4 milligrams of Lexiscan was infused. The stress phase was continued for a total of 5 minutes. Heart rate at the end of the stress phase was 90 bpm with a blood pressure 91/52 mm of Hg. The EKG at the peak infusion revealed no significant changes. Sestamibi was injected 20 seconds after the Lexiscan infusion. Heart rate at the end of the recovery phase was 85 bpm with a blood pressure of 112/55 mm of Hg. CONCLUSION: 1. No significant EKG changes with the LexiScan infusion 2. No LexiScan induced chest pain or cardiac arrhythmia 3. Normal blood pressure and heart rate response 4. Sestamibi/sestamibi perfusion scan pending; see separate report. Electronically Signed On 04-01-2022 15:53:23 CDT by Marylin Fritz M.D. [id number]
[2022-03-31 06:14] LABS: Glucose Point of Care 126 mg/dL (70-110)
[2022-03-31] MEDS: regadenoson 0.4 Mg/5 ml Syringe IVP (07:35)
[2022-03-31] MEDS: spironolactone 25 mg Tablet PO (08:46)
[2022-03-31] MEDS: aspirin 81 mg EC Tablet PO (08:46)
[2022-03-31] MEDS: FUROsemide 40 mg Tablet PO (08:46)
[2022-03-31 11:04] LABS: Glucose Point of Care 132 mg/dL (70-110)
[2022-03-31] MEDS: acetaminophen 325 mg Tablet 650 MG PO (11:21)
--- NOTE | 2022-03-31 16:30 | PM.DCS ---
Discharge Providers Date of Admission: 03/30/22 18:04 Date of Discharge: March 31, 2022 Attending Provider at Admission: Gloria Carter MD Attending Provider at Discharge: Gloria Carter MD Primary Care Provider: GUY Weinberg Diagnoses at Discharge Discharge Diagnosis (1) Hyperlipidemia: Status: Acute (2) Hypertension: Status: Acute (3) Type 2 diabetes mellitus with cardiac complication: Status: Acute (4) CHF (congestive heart failure): Status: Acute (5) Hyperlipidemia: Status: Acute (6) Smoker: Status: Acute Reason for Visit Reason for Visit: chest pain Brief History: Yodit Levy is a 52 year old female With past medical history of coronary artery disease status post LISA x4, degenerative disc disease, hyperlipidemia, hypertension, type 2 diabetes mellitus, congestive heart failure unsure of details presented to the hospital today with complaint of sharp chest pain that was occurring in the middle of her chest.? She states she took nitro this morning but it did not help the pain at all.? The pain started around 830 this a.m. she said it was intermittent and comes and goes and it feels like a pressure-like pain.? She has had an MN in the past and the pain does not feel like that.? She also states she has been struggling with acid reflux for some time now.? She received 4 stents at age [age] years old and now she is 52.? She states she moved from [place] a few years ago but has not establish care with a welding supervisor in [place] yet.? Her welding supervisor and [place] was Dr. Amezcua with [facility].? At this time she is not really having the pain but did feel a pressure like sensation a little while ago.? 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 The pain came on this morning when she was cooking.? It also went away on its own.? There were no alleviating or exacerbating factors.? Due to her extensive cardiac history she was concerned and therefore came to the hospital. On arrival blood pressure 120/58, respiratory to 18, pulse 60, temperature 98 1, saturating 97% on room air chest x-ray did not show any acute findings.? Sodium 134, potassium 4.1, white count 9.2.? Patient was ordered GI cocktail x1 in the ER.? Troponins negative x2.? EKG showed sinus rhythm Hospital Course Hospital Course Patient was admitted for chest pain. Her chest pain was very atypical. As soon as she got GI cocktail chest pain never recurred. She said she felt a lot better after getting the GI cocktail and she felt relief for the first time in hours. Patient had a stress test done next morning. It was negative for ischemia. EKG was also reviewed by welding supervisor that was done during stress test and there was no evidence of ischemia on that either. Troponins were negative. Delta negative. Results as follows: IMPRESSIONS ?1.? Fairly uniform myocardial tracer uptake with no significant perfusion ?abnormalities ?2.? Normal LV ejection fraction of 84%. ?3.? LV wall motion analysis revealing no gross wall motion normalities. ?4.? Normal LV volume. ?5.? Elevated transient ischemic dilatation ratio, may suggest? endocardial ?ischemia.? However the positive predictive value of this finding is limited.? ?Clinical correlation recommended. EKG showed NSR Echo 1. Normal left ventricular size, systolic function and mildly ?increased wall thickness, with no regional wall motion ?abnormalities. Left ventricular ejection fraction is estimated ?at 70 %. Normal diastolic function. ?2. Trace to mild tricuspid? and mitral valve regurgitation. ?3. Pulmonary artery pressure estimated at 25 mm Hg. ?4. No prior similar studies to compare. Patient currently does not have a welding supervisor in [place]. She would like to establish with 1. Discussed with Dr. Fritz. He will see her as an outpatient. Discussed her findings of her stress test with him in detail. He stated that patient can be seen as an outpatient. I discussed with the patient as well and she stated that she would like to see cardiology as an outpatient and would like to go home at this time as she is chest pain-free and has been doing well after the GI cocktail. She says she has been struggling with GERD for quite some time now and her was very concerned about her reflux as well. I started patient on Protonix 40 daily for 4 weeks and to follow-up with her primary care doctor and cardiology as an outpatient. She demonstrated understanding will be discharged home in stable condition. Patient to continue her existing home medications including aspirin Plavix. I did educate her that if she starts to have worsening heartburn, chest pain, lightheadedness including but not limited to shortness of breath or any other symptoms she should return to the ER due to her extensive cardiac history. She voiced understanding. All questions answered. Physical Exam Narrative: General: Alert oriented x3, patient seen sitting up in bed appearing slightly anxious. No acute distress HEENT: Normocephalic, atraumatic, EOMI, breathing comfortably on room air. Cardio: Regular rate rhythm, normal S1-S2, no murmurs rubs gallops, Respiratory: Good bilateral air entry, no wheezes no rhonchi appreciated GI: Abdomen soft, nontender, nondistended, bowel sounds + Behavior: Appropriate and cooperative Extremities: Pulses 2+, no edema, no cyanosis Discharge Data Studies Completed and Pending Completed Studies During Hospitalization Category Date Time Status Sestamibi Stress Test Request Stat Exams 03/31/22 06:12 Draft XR chest 1V portable [id number] Stat Exams 03/30/22 10:32 Completed NM sincere perf SPECT r/s* [id number] Routine Nuc Med 03/31/22 18:06 Completed CV. echo complete* [id number] Urgent Ultrasound 03/30/22 18:04 Completed Pending at discharge Category Date Time Status Sestamibi Stress Test Request Stat Exams 03/30/22 18:04 Stop Req Radiology Impressions Chest X-Ray 03/30/22 10:32 IMPRESSION: No acute findings. Laboratory Results WBC 12.0 10^3/uL (4.0-10.0) H 03/31/22 05:05 RBC 4.26 10^6/uL (4.1-5.3) 03/31/22 05:05 Hgb 13.0 g/dL (11.5-15.3) 03/31/22 05:05 Hct 38.7 % (37.0-47.0) 03/31/22 05:05 MCV 90.8 fl (81-99) 03/31/22 05:05 MCH 30.5 pg (28.0-34.0) 03/31/22 05:05 MCHC 33.6 g/dL (30.0-36.0) 03/31/22 05:05 RDW 13.2 % (12.1-15.1) 03/31/22 05:05 Plt Count 320 10^3/cmm (130-400) 03/31/22 05:05 MPV 10.6 fL (7.4-10.4) H 03/31/22 05:05 Neut % (Auto) 67.9 % 03/31/22 05:05 Lymph % (Auto) 21.1 % 03/31/22 05:05 [place] % (Auto) 6.1 % 03/31/22 05:05 Eos % (Auto) 3.6 % 03/31/22 05:05 Baso % (Auto) 0.7 % 03/31/22 05:05 Neut # (Auto) 8.15 10^3/uL (1.8-7.7) H 03/31/22 05:05 Lymph # (Auto) 2.5 10^3/uL (0.8-4.8) 03/31/22 05:05 [place] # (Auto) 0.7 10^3/uL (0.2-0.9) 03/31/22 05:05 Eos # (Auto) 0.4 10^3/uL (0.0-0.8) 03/31/22 05:05 Baso # (Auto) 0.1 10^3/uL (0.0-0.1) 03/31/22 05:05 Nucleated RBC % (auto) 0 % 03/31/22 05:05 Nucleated RBCs # 0.0 /100WBC 03/31/22 05:05 Sodium 137 mmol/L (136-145) 03/31/22 05:05 Potassium 3.7 mmol/L (3.5-5.1) 03/31/22 05:05 Chloride 103 mmol/L (98-107) 03/31/22 05:05 Carbon Dioxide 24 mmol/L (22-29) 03/31/22 05:05 Anion Gap 13.7 (5-19) 03/31/22 05:05 BUN 10 mg/dL (6-20) 03/31/22 05:05 Creatinine 0.6 mg/dL (0.5-0.9) 03/31/22 05:05 GFR Calculation 104.2 mL/min (90-130) 03/31/22 05:05 Glucose 135 mg/dL (65-115) H 03/31/22 05:05 POC Glucose 132 mg/dL (70-110) H 03/31/22 11:00 Estimat Average Glucose 120 03/31/22 05:05 Hemoglobin A1c 5.8 % (4.0-6.0) 03/31/22 05:05 Calculated Osmolality 285 mOsm/kg (285-295) 03/31/22 05:05 Calcium 8.9 mg/dL (8.5-10.5) 03/31/22 05:05 Magnesium 2.0 mg/dL (1.7-2.3) 03/31/22 05:05 Total Bilirubin 0.2 mg/dL (0.15-1.2) 03/31/22 05:05 AST 20 U/L (0-32) 03/31/22 05:05 ALT 19 U/L (0-33) 03/31/22 05:05 Alkaline Phosphatase 65 U/L (35-105) 03/31/22 05:05 Troponin T Baseline 6 ng/L (0-10) 03/30/22 10:52 Troponin T 120 Minute 6.00 ng/L (0-10) 03/30/22 13:00 Delta Troponin T 0 ABS# (0-10) 03/30/22 13:00 Troponin T Hi Sens 6Hr 6.00 ng/L (0-10) 03/30/22 16:56 Troponin T Hi Sens 6Hr Delta 0 ng/L (0-12) 03/30/22 16:56 NT-Pro-B Natriuret Pep 19 pg/mL (0-125) 03/30/22 10:52 NT-Pro-B Natriuret Pep 22 pg/mL (0-125) 03/30/22 10:52 Total Protein 6.4 g/dL (6.6-8.7) L 03/31/22 05:05 Albumin 3.8 g/dL (3.5-5.2) 03/31/22 05:05 Globulin 2.6 g/dL (1.3-4.6) 03/31/22 05:05 Triglycerides 211 mg/dL (0-150) H 03/30/22 10:52 Cholesterol 160 mg/dL (0-200) 03/30/22 10:52 LDL Cholesterol, Calc 89 mg/dL (50-129) 03/30/22 10:52 HDL Cholesterol 29 mg/dL (60-100) L 03/30/22 10:52 LDL/HDL Ratio 3.07 RATIO (0.00-3.22) 03/30/22 10:52 Cholesterol/HDL Ratio 5.52 mg/dL (0.0-4.40) H 03/30/22 10:52 TSH 0.39 uIU/mL (0.27-4.20) 03/30/22 10:52 Vitals Last Vital Signs Temp 98.4 F 03/31/22 16:00 Pulse 77 03/31/22 16:00 Resp 15 03/31/22 16:00 BP 116/74 03/31/22 16:00 Pulse Ox 96 03/31/22 16:00 O2 Del Method 03/31/22 16:00 Discharge Plan Discharge Patient Disposition: Home Condition: Stable Prescriptions: New Protonix 40 mg tablet,delayed release (DR/EC) 40 mg PO DAILY 30 Days Qty: 30 0RF Continued cetirizine [Zyrtec] 10 mg tablet 10 mg PO DAILY fluticasone propionate [Allergy Relief (fluticasone)] 50 mcg/actuation spray,suspension 1 spray intranasal DAILY PRN (Reason: Allergy Symptoms) Rx Instructions: administer into each nostril multivitamin Tablet 1 tab PO DAILY Linzess 72 mcg capsule 72 mcg PO DAILY Qty: 30 0RF hydrocodone-acetaminophen 10-325 mg tablet 1 tab PO Q4H PRN (Reason: pain) 5 Days Qty: 20 0RF furosemide 40 mg tablet 40 mg PO DAILY Qty: 90 0RF nitroglycerin 0.4 mg Tablet, Sublingual 0.4 mg SUBLINGUAL Q5M PRN (Reason: chest pain) Rx Instructions: do not exceed 3 doses per episode metoprolol succinate 50 mg tablet extended release 24 hr 50 mg PO DAILY spironolactone 25 mg tablet 25 mg PO DAILY fenofibrate micronized 134 mg capsule 134 mg PO QPM metformin 1,000 mg tablet 1,000 mg PO BID potassium chloride 20 mEq tablet extended release 20 meq PO DAILY aspirin 81 mg Tablet,Delayed Release (Dr/Ec) 81 mg PO DAILY omega-3 fatty acids 500 mg Capsule 500 mg PO QPM atorvastatin 80 mg tablet 80 mg PO QPM Plavix 75 mg tablet 75 mg PO QPM No Action (DME) HINGED KNEE BRACE - RIGHT See Rx Instructions .Route .MEDSUPPLY Qty: 1 0RF Rx Instructions: As directed Discharge Orders: Discharge Order (Routine); Ordered 03/31/22 Ordered By: Gloria Emma Referrals: Yanelis Hinojosa FNP [Primary Care Provider] - 04/06/22 11:00 am Marylin Fritz MD [Physician] - 1 week (Dr. Fritz aware. Please follow-up.) Alis Whitten FNP [Nurse Practitioner] - Discharge Diet: Cardiac Discharge Activity: Resume usual activity Patient Instructions: Pantoprazole (By mouth), How to Stop Smoking (DC), Irritable Bowel Syndrome (DC), Hyperlipidemia (DC), Opioid Safety Activity Restrictions/Additional Instructions: Please return to the ER if you develop any heartburn, epigastric pain, chest pain, chest pressure lightheadedness, dizziness, back pain, abdominal pain. Please do not ignore your symptoms and return to ER if you experience any worsening symptoms or development of new symptoms. You will be following up with Dr. Fritz as an outpatient. I have discussed your care with him. Please follow-up with your primary care doctor and cardiology as advised. Stand Alone Forms: Work/School Release Discharge Attestations Time Spent in Discharge Care*: greater than 30 min Quality Metrics Clinical Quality Measures [ No reported AMI, CVA or VTE this stay] Coding Level of Care Code Acute Chg FW DC note Diagnoses Hyperlipidemia E78.5 Hypertension I10 Type 2 diabetes mellitus with cardiac complication E11.59 CHF (congestive heart failure) I50.9 Hyperlipidemia E78.5 Smoker F17.200
[2022-03-31 16:53] LABS: Glucose Point of Care 142 mg/dL (70-110)
[2022-03-31] MEDS: clopidogrel 75 mg Tablet PO (17:38)
[2022-03-31] MEDS: atorvastatin 40 mg Tablet 80 MG PO (17:38)
--- NOTE | 2022-03-31 18:06 | NMCV_ITS ---
NM sincere perf SPECT r/s* [id number] Yodit Levy Age: 52 Gender: F : 1970 Exam Date: 03/31/2022 06:59 Ordering Phys: Gloria Carter MD Technologist: LIZZIE Fisher Exam Location: [facility] Indications: CHEST PAIN STRESS TEST Please see separate stress test report in [facility] for full findings IMAGE PROTOCOL Rest/Stress 1 Lexiscan Day Radiopharmaceutical Dose (mCi) Administration Site Administered by Rest: Tc-99m 10.7 IV LIZZIE Sebastian Sestamibi Stress:Tc-99m 32.6 IV LIZZIE Sebastian Sestamibi Rest: 31-Mar-2022 60 Discovery 630 Stress: 31-Mar-2022 30 Discovery 630 0.4mg Lexiscan. Images obtained in supine and prone position. SPECT RESULTS Technical Quality: Excellent Raw Data Analysis: Normal Image Corrections: No attenuation or motion correction applied Summed Stress Score: 0 Summed Rest Score: 1 Summed Difference Score: 0 PERFUSION FINDINGS Fairly uniform myocardial tracer uptake. No significant perfusion abnormalities were noted FUNCTIONAL RESULTS (calculated via Gated SPECT) Stress Image LV EF (%): 84 Stress EDV (mL):94 TID: 1.22 Stress ESV (mL):15 FUNCTIONAL FINDINGS: Segmental wall motion analysis revealing no gross wall motion abnormalities. Elevated transient ischemic dilatation ratio 1.22 IMPRESSIONS 1. Fairly uniform myocardial tracer uptake with no significant perfusion abnormalities 2. Normal LV ejection fraction of 84%. 3. LV wall motion analysis revealing no gross wall motion normalities. 4. Normal LV volume. 5. Elevated transient ischemic dilatation ratio, may suggest endocardial ischemia. However the positive predictive value of this finding is limited. Clinical correlation recommended. Dr Marylin Fritz MD FACC (Electronically Signed) Final Date: 31 March 2022 15:51 S
== END 2022-03-31 18:25 | disposition home or self-care (01) ==
LOC: ER 18:14 → MEDSURG 20:18
PROVIDERS: Family Medicine; Admitting Provider Internal Medicine; Emergency Provider Emergency Medicine; PCP Nurse Practitioner Family; Visit Provider Internal Medicine
DX: E78.5 Hyperlipidemia, unspecified (principal); E11.59 Type 2 diabetes mellitus with other circulatory complications; I11.0 Hypertensive heart disease with heart failure; I50.9 Heart failure, unspecified; F17.200 Nicotine dependence, unspecified, uncomplicated; I25.10 Atherosclerotic heart disease of native coronary artery without angina pectoris; Z95.5 Presence of coronary angioplasty implant and graft
CPT/HCPCS: 36415; 36416; 71045; 78452; 80053; 80061; 82962; 83036; 83735; 83880; 84443; 84484; 85025; 90471; 90732; 93005; 93017; 93306; 96372; 99285; A9500; G0378; J1644; J2785

== ENCOUNTER 2022-04-13 15:15 | Inpatient (IN) | payer BC, MEDICAID, SELFPAY ==
[2022-03-28 09:49] VITALS: BMI 25.0
--- NOTE | 2022-03-28 10:08 | P.ANESASSM_ITS ---
Pre-Anesthetic Assessment Height/Weight: Height 1.68 m Weight 70.307 kg Preop Diagnosis: Vaginal vault prolapse Operation Date: 04/11/22 12:45 Proposed Procedures p revision left total knee/ 97966,T84.093A (Lexis)(Left) - Andres Sy MD Familial anesthetic complications: None Social Tobacco and No alcohol Exam alert, oriented x 3, clear to auscultation bilaterally and regular rate & rhythm Airway Mallampati: Class II Dentition: false Pulmonary Sleep Apnea CV/HEM Coronary Artery Disease (4 stents (> 1 year) - able to Achieve > 4 METS), Congestive Heart Failure, Hypertension and Myocardial Infarction (2015) None reported Hepatic None reported GI IBS Metabolic Diabetes Mellitus and Hyperlipidemia Musc/skel Osteoarthritis/DJD Neuropsych None reported Anesthetic Plan ASA status: 3 Anesthesia: Regional (specify below) (spinal + adductor) Risk of > 500 ml blood loss (7ml/kg in children): Yes, adequate IV access and fluids planned Medications/Allergies Home Medications Medication Instructions Recorded Confirmed Last Taken Type cetirizine 10 mg tablet (Zyrtec) 10 mg PO DAILY PRN Allergy Symptoms 05/19/21 03/28/22 Unknown History fluticasone propionate 50 1 spray intranasal DAILY 05/19/21 03/28/22 Unknown History mcg/actuation nasal spray,suspension (Allergy Relief (fluticasone)) multivitamin 1 tab PO DAILY 05/19/21 03/28/22 12/14/21 History aspirin 81 mg tablet 81 mg PO DAILY 12/13/21 03/28/22 12/08/21 History nitroglycerin 0.4 mg sublingual 0.4 mg sublingual Q5M PRN chest 12/13/21 03/28/22 Unknown History tablet pain HINGED KNEE BRACE - RIGHT #1 ea 12/24/21 03/17/22 Unknown Rx linaclotide 72 mcg capsule 72 mcg PO DAILY #30 caps 02/23/22 03/28/22 Unknown Rx (Linzess) atorvastatin 80 mg tablet 80 mg PO DAILY #90 tabs 02/28/22 03/28/22 Unknown Rx clopidogrel 75 mg tablet (Plavix) 75 mg PO DAILY #90 tabs 02/28/22 03/28/22 Unknown Rx hydrocodone 10 mg-acetaminophen 1 tab PO Q4H PRN pain 5 days #20 03/04/22 03/28/22 Unknown Rx 325 mg tablet tabs furosemide 40 mg tablet 40 mg PO DAILY #90 tabs 03/21/22 03/28/22 Unknown Rx fenofibrate micronized 134 mg 134 mg PO DAILY 03/28/22 03/28/22 Unknown History capsule metformin 1,000 mg tablet 1,000 mg PO BID 03/28/22 03/28/22 Unknown History metoprolol succinate 50 mg 50 mg PO DAILY 03/28/22 03/28/22 Unknown History tablet,extended release 24 hr potassium chloride 20 mEq 20 meq PO DAILY 03/28/22 03/28/22 Unknown History tablet,extended release spironolactone 25 mg tablet 25 mg PO DAILY 03/28/22 03/28/22 Unknown History Allergies Allergy/AdvReac Type Severity Reaction Status Date / Time lisinopril Allergy coughing Verified 03/28/22 09:43 Penicillins Allergy nausea Verified 03/28/22 09:43 adhesives Allergy peels Uncoded 03/28/22 09:43 skin, burn [facility] Anesthesia Medical History Aftercare following surgery of the genitourinary system CHF (congestive heart failure) DJD (degenerative joint disease), cervical DJD (degenerative joint disease), lumbar Hyperlipidemia Hypertension Type 2 diabetes mellitus with cardiac complication Surgical History H/O of anterior colporrhaphy (~12/15/21) 12/15/2021- anterior colporrhaphy augmented with allograft, single incision mid urethral sling performed by Dr. Garrison at [facility] History of cholecystectomy History of lumpectomy of left breast fatty tumor History of partial hysterectomy Hx of heart artery stent Family History Mother CAD (coronary artery disease) Hypertension Father CAD (coronary artery disease) Diabetes Family/Other Breast cancer Maternal aunt Hypertension Maternal aunts and uncles Stroke Maternal aunt Denies family history of Clotting disorder Hyperlipidemia Chronic kidney disease (CKD) Bleeding disorder Social History Smoking and tobacco status: current every day smoker Alcohol intake: never Household members: spouse Marital status: Highest education level completed: High School Graduate service: No Current occupational status: unemployed Data Anesthesia Cardiac Studies: No Data to Display
[2022-04-13] VITALS (21 sets, daily range): BP systolic 98–121; BP diastolic 50–89; PULSE 63–96; RESP 12–18; TEMP 36.3–36.9; O2SAT 91–97
[2022-04-13] MEDS: sodium chloride 0.9% 1,000 ML 30 ML IV (11:21)
[2022-04-13] MEDS: acetaminophen 500 mg Tablet 1000 MG PO ×2 (11:22→18:32)
[2022-04-13] MEDS: oxyCODONE 20 mg ER (12 HR) Tablet PO (11:22)
[2022-04-13] MEDS: CELEcoxib 200 mg Capsule 400 MG PO (11:22)
[2022-04-13] MEDS: gabapentin 300 mg Capsule PO ×2 (11:22→17:13)
[2022-04-13 11:31] LABS: Glucose Point of Care 111 mg/dL (70-110)
[2022-04-13] MEDS: ceFAZolin 2,000 MG in sodium chloride 0.9% (plus) 50 ML 100 MG IV ×2 (12:40→19:47)
[2022-04-13] MEDS: tranexamic acid 1,000 mg/10mL SDV 1000 MG IV (13:00)
--- NOTE | 2022-04-13 13:01 | W.PM.OPSFHP ---
Same Day Surgery H&P Indication for Procedure/HPI DATE OF PROCEDURE: April 13, 2022 CHIEF COMPLAINT/INDICATIONFOR SURGICAL PROCEDURE: Unstable left total knee arthroplasty PREOP DIAGNOSIS: Instability left total knee PLANNED PROCEDURE: Operation Date: 04/13/22 12:00 Proposed Procedures p revision left total knee/ 46193,T84.093A (Lexis)(Left) - Andres Sy MD 51 year old female patient here for evaluation of her left knee pain. Patient states that she has had pain for approximately one month. She denies any injury.? Is a long history of left knee pain, in fact describes bilateral knee pain attributable to arthritis.? She reports she had a TKA, in October 2020 in [place] at [facility]. She reports she did very well immediately after surgery.? Describes no postoperative complications.? Since she is removed activity she now is experiencing pain.? She states that her pain is in the posterior lateral knee.? Describes the pain intermittent in nature.? She states currently today she has quite a bit of discomfort.? She describes pain with activity.? She reports popping and grinding sensations with occasional swelling.? Scribes instability in her knee with weightbearing she states that her pain is increased with prolonged standing and walking. She states that her pain has improved with rest. She has been taking [place] for pain/discomfort.? Her pain has release levels were her primary physician actually took her off of work.? She would like to return to work but is concerned that with her current instability she has not only giving way but pain symptoms.? Medications/Allergies* Home Medications Medication Instructions Recorded Confirmed Type cetirizine 10 mg tablet (Zyrtec) 10 mg PO DAILY 05/19/21 04/13/22 History fluticasone propionate 50 1 spray intranasal DAILY PRN 05/19/21 04/13/22 History mcg/actuation nasal Allergy Symptoms spray,suspension (Allergy Relief (fluticasone)) multivitamin 1 tab PO DAILY 05/19/21 04/13/22 History nitroglycerin 0.4 mg sublingual 0.4 mg sublingual Q5M PRN chest 12/13/21 04/04/22 History tablet pain fenofibrate micronized 134 mg 134 mg PO QPM 03/28/22 04/13/22 History capsule metformin 1,000 mg tablet 1,000 mg PO BID 03/28/22 04/13/22 History metoprolol succinate 50 mg 50 mg PO DAILY 03/28/22 04/13/22 History tablet,extended release 24 hr potassium chloride 20 mEq 20 meq PO DAILY 03/28/22 04/13/22 History tablet,extended release spironolactone 25 mg tablet 25 mg PO DAILY 03/28/22 04/13/22 History aspirin 81 mg tablet,delayed 81 mg PO DAILY 03/30/22 04/04/22 History release atorvastatin 80 mg tablet 80 mg PO QPM 03/30/22 04/04/22 History clopidogrel 75 mg tablet (Plavix) 75 mg PO QPM 03/30/22 04/04/22 History omega-3 fatty acids 500 mg capsule 500 mg PO QPM 03/30/22 04/04/22 History Allergies/Adverse Reactions Allergy/AdvReac Type Severity Reaction Status Date / Time lisinopril Allergy coughing Verified 04/04/22 15:11 Penicillins Allergy nausea Verified 04/04/22 15:11 adhesives Allergy peels Uncoded 04/04/22 15:11 skin, burn Current Medications: Generic Name Dose Route Start Last Admin Trade Name Freq PRN Reason Stop Dose Admin Sodium Chloride 1,000 mls @ 30 mls/hr 04/13/22 10:45 04/13/22 11:21 Sodium Chloride 0.9% IV 04/14/22 10:44 30 mls/hr .Q24H BRITTA Administration Pertinent History/Comorbid Conditions* Medical History (Updated 04/04/22 @ 20:23 by GUY Brito) Aftercare following surgery of the genitourinary system CHF (congestive heart failure) DJD (degenerative joint disease), cervical DJD (degenerative joint disease), lumbar Hyperlipidemia Hypertension Type 2 diabetes mellitus with cardiac complication Surgical History (Updated 01/01/22 @ 21:02 by Rigoberto Garrison MD) H/O of anterior colporrhaphy (~12/15/21) 12/15/2021- anterior colporrhaphy augmented with allograft, single incision mid urethral sling performed by Dr. Garrison at [facility] History of cholecystectomy History of lumpectomy of left breast fatty tumor History of partial hysterectomy Hx of heart artery stent Family History (Updated 07/02/21 @ 15:01 by Eloisa Espino LPN) Diabetes Father CAD (coronary artery disease) Mother Father Breast cancer Family/Other Maternal aunt Hypertension Mother Family/Other Maternal aunts and uncles Stroke Family/Other Maternal aunt Denies family history of Clotting disorder Hyperlipidemia Chronic kidney disease (CKD) Bleeding disorder Social History Smoking and tobacco status: current every day smoker Alcohol intake: never Household members: spouse Marital status: Highest education level completed: High School Graduate service: No Current occupational status: unemployed Pertinent Exam Findings alert, oriented x 3 and clear to auscultation bilaterally KNEE [left] Well-healed anterior incision No effusion or erythema RANGE OF MOTION: ? ? ? EXAMINED LIMB ? Extention: Full extent ? Flexion: 120 degrees Patient has quite a bit of instability in her left knee.? With her knee fully extended she has a least 5 mm of opening both to varus and valgus stress.? With the knee bent to 30 degrees I would estimate opening of at least a centimeter. She has increased translation of over a centimeter on Rina exam.? I can feel her post engagement with posterior drawer testing MOTOR: Strong quadriceps hamstrings tibialis anterior and extensor houses longus strength SENSATION: Intact to light touch Recommendations Surgery/Procedure today Other Plans: Seen with revision left total knee arthroplasty today. This possibly may involve just revision of the tibial component. But if sufficient stability cannot be obtained we may need to revise the femoral component as well. We will proceed with surgery today. Coding Level of Care Code Acute Supervisor Patching for Naveen Rincon
--- NOTE | 2022-04-13 13:10 | P.ANESUD_ITS ---
Pre-Anesthetic Update Pre-Anesthetic Assessment: Date of Surgery/Procedure: 04/13/22 Preop Krystyna gnosis: Instability left total knee Proposed Procedure: Operation Date: 04/13/22 12:00 Proposed Procedures p revision left total knee/ 05493,T84.093A (Lexis)(Left) - Andres Sy MD Any changes to Pre-Anesthetic Assessment?: No Last Intake: Intake Last Liquid Date 04/12/22 Last Liquid Time 23:00 Last Solid Date 04/12/22 Last Solid Time 22:00 Vitals: Temperature 97.4 F L 04/13/22 10:48 Temperature Source Temporal Artery S can 04/13/22 10:48 Pulse Rate 84 04/13/22 10:48 Respiratory Rate 18 04/13/22 10:48 Blood Pressure 105/89 04/13/22 10:48 Blood Pressure Liya n 94 04/13/22 10:48 Pulse Oximetry 97 04/13/22 10:48 Oxygen Delivery Me thod 04/13/22 10:55 Exam: Pre-Anes Outpt Exam: alert, oriented x 3, clear to auscultation bilaterally and regular rate & rhythm Cardiac Studies: Echocardiogram 03/30/22 Sestamibi Stress Test (Cardiology) 03/31 Anesthesia Procedures 2 Nerve Block: Nerve Block 1: Main Anesthesia: spinal anesthesia block Time Out Performed: Yes Consent: requested by attending/covering physician, from patient, risks and benefits reviewed and patient agrees to proceed Nerve block location: adductor canal (left) Anesthesia monitors applied: pulse oximetry, EKG, BP cuff and oxygen Nerve block position: supine Anesthetic Used: ropivicaine 0.5% Amount of anesthesia used (mL): 20 Ultrasound used to: recognize landmarks Nerve Stimulator Used?: No Interscalene/Femoral BLK: 4 stimuplex 21 g needle used for position and inplane approach Injection: neg aspiration of heme Patient Tolerated Procedure: well Complications: none
[2022-04-13] MEDS: tranexamic acid 1,000 mg/10mL SDV 1000 MG XX (13:53)
[2022-04-13] MEDS: ketorolac 30 mg/mL INJ XX (13:54)
[2022-04-13] MEDS: EPINEPHrine 1 mg/mL INJ XX (13:54)
--- NOTE | 2022-04-13 15:33 | P.OP_ITS ---
Operative Report Date of procedure: April 13, 2022 Pre-op diagnosis: Preop Diagnosis Instability left total knee Post-op diagnosis: same Procedure done: Revision left knee tibial component Implants: Lexis Nexgen size 4 stemmed tibial component, size 4 tibial blocks 5 mm thickness x2, 12 mm x 100 mm straight stem extension, 20 mm Legacy LPS flex tibial insert Pathology: none sent Surgeon: Andres Sy Anesthesia: General Estimated blood loss (mL): 100 Tourniquet time (min): 92 Complications: None Findings: The patient has a well fixed femoral tibial and patellar component. Intraoperatively again marked laxity was identified to varus and valgus stress Condition: stable Disposition: PACU Brief History: The patient is a 52-year-old female with a history of a left total knee arthroplasty 1 year ago with continued instability. Preoperative exam revealed significant laxity to varus and valgus stress. As per tibial component did not allow for efficient tibial insert thickness decision was made to proceed with a revision of the tibia and probably to achieve stability with possible addition of a constrained femur if necessary. Procedure: The patient was taken to the operating room and given a spinal anesthesia. A abductor canal block was provided. She was given 2 g of Ancef. She is prepped and draped in the supine position with the left leg exposed. A timeout was performed. The knee was approached of the previous incision which was extended distally approximately 5 more centimeters to accommodate the anticipated osteotomy. The knee was then entered through a medial parapatellar approach. The tibial component was exposed as best possible circumferentially and periosteum elevated off the anterior medial tibia. The tibial polyethylene was removed with a osteotome. Next a chevron osteotomy was accomplished from the anterior medial tibia extending distally to the level of the tibial tubercle leaving approximately a 15 to 20 mm thickness of anterior cortical bone. The osteotomy was then directed anteriorly exiting the anterior tibia approximately 8 mm from the joint line. Utilizing osteotomes the osteotomy was reflected laterally and the knee flexed allowing access to the tibial tray circumferentially and the cemented anterior stem. Utilizing an oscillating saw in small osteotomes the cement mantle was broken free and the component removed with minimal blood loss. Intramedullary reamers were then passed down the canal and the canal seq uentially reamed to 12 mm. The intramedullary guides were used to cut the tibia removing the cement. A trial reduction was done with the trial stem and 5 mm augments and a 20 mm polyethylene was provided excellent stability. Drill holes were made just lateral and just medial and lateral to the osteotomy at approximately 2 mm intervals working distally. A Ultratape suture was passed through each hole and the suture passed along the posterior canal. The final stem, augments, and tibial baseplate were assembled and cemented passing the stem anterior to the sutures. Cement was removed along the anterior aspect of the component as to not interfere with later replacement of the osteotomy. The tibial osteotomy was then replaced with very good opposition anteriorly. A single [employer] Produce 6.5 mm low-profile hex screw was then passed from the medial osteotomy into the lateral tibia. The 3 tape sutures were tightly secured securing the osteotomy distally. The knee was brought through a range of motion with no motion identified about the osteotomy. The knee was stable to varus and valgus stresses throughout range of motion. The knee was irrigated with a saline and antibiotic solution. The extensor retinaculum was closed with a running 0 Stratafix, the subcutaneous tissues with a 2-0 STRATAFIX and the skin with a running 4-0 STRATAFIX. The skin was closed with Prineo skin glue. Compressive dressing was applied and the patient was placed in a knee immobilizer locked in full extension.
--- NOTE | 2022-04-13 15:51 | XR_ITS ---
WS: [id number] Exam: XR knee LT 1-2V [id number] Date/Time of Exam: 04/13/2022 3:51 PM Reason For Exam: Left Total knee arthroplasty Comparison 02/08/2022. A total knee prosthesis is in place in satisfactory position. The tibial component of the prosthesis has been replaced and revised since the prior study. There is an oblique fracture through the anterio r cortex of the upper tibia without displacement. A single transverse screw seen in the upper tibia j ust anterior to the tibial stem. XR/XR knee LT -2V [id number] IMPRESSION: 1. Total knee prosthesis in satisfactory position. The tibial component of the prosthesis has been replaced and revised. 2. Oblique fracture through the anterior cortex of the upper tibia without disp lacement.
[2022-04-13] MEDS: sodium chloride 0.9% 1,000 ML 75 ML IV (16:43)
[2022-04-13 17:03] LABS: Glucose Point of Care 101 mg/dL (70-110)
--- NOTE | 2022-04-13 17:43 | ANE.PACU2 ---
Inpatient post-anesthesia follow up: Airway intact: Yes Vital signs: Temperature 98.4 F Pulse Rate 68 Respiratory Rate 16 Blood Pressure 107/52 Pulse Oximetry 97 Oxygen Delivery Me thod Room Air Oxygen Flow Rate Fraction of Inspir ed Oxygen Hydration adequate: Yes Nausea and vomiting: No Pain level: 2 Mental status: Baseline
[2022-04-13] MEDS: oxyCODONE 5 mg IR Tab/Cap 10 MG PO ×2 (19:42→23:57)
[2022-04-13 21:19] LABS: Glucose Point of Care 173 mg/dL (70-110)
[2022-04-13] MEDS: insulin lispro 100 unit/1 mL SUBCUT (21:42)
[2022-04-13] MEDS: CELEcoxib 200 mg Capsule PO (21:42)
[2022-04-14 03:47] VITALS: BP 106/64; PULSE 66; RESP 16; TEMP 36.5; O2SAT 93
[2022-04-14] MEDS: ceFAZolin 2,000 MG in sodium chloride 0.9% (plus) 50 ML 100 MG IV ×2 (03:47→12:59)
[2022-04-14] MEDS: acetaminophen 500 mg Tablet 1000 MG PO ×2 (03:48→10:39)
[2022-04-14 04:10] LABS: Hemoglobin 10.7 g/dL (11.5-15.3)
[2022-04-14 04:57] VITALS: RESP 16
[2022-04-14] MEDS: oxyCODONE 5 mg IR Tab/Cap 10 MG PO ×3 (04:57→12:58)
--- NOTE | 2022-04-14 06:20 | PC.NURSE ---
Patient assisted from bed to chair with walker following removal of guillen catheter. Patient tolerated well.
[2022-04-14 06:59] LABS: Glucose Point of Care 136 mg/dL (70-110)
[2022-04-14 07:47] VITALS: BP 103/61; PULSE 62; RESP 16; TEMP 36.5; O2SAT 94
--- NOTE | 2022-04-14 08:17 | PC.NURSE ---
Patient observed ambulating in the hallway at this time with physical therapy.
[2022-04-14 09:10] VITALS: RESP 18
[2022-04-14] MEDS: aspirin 325 mg EC Tablet PO (09:11)
[2022-04-14] MEDS: gabapentin 300 mg Capsule PO (09:11)
[2022-04-14] MEDS: sodium chloride 0.9% 1,000 ML 75 ML IV (09:12)
--- NOTE | 2022-04-14 10:37 | PC.CHAP ---
Pastoral Care Encounter/Spiritual Assessment Type of Contact [] Declined behaviorist visit [] Patient/Family/Request visit [] Outpatient visit [] Follow-up visit [] Physician referral [] Code/Alert [x] Routine visit [] Staff referral [] Actively dying [] Patient sleeping [] Family support [] [] Out of room [] Palliative care [] [x] Receiving care in room [] Pre-surgical visit [] Trauma [] Long length of stay [] ICU visit [] Other: Relational/Emotional Strength [x] Patient feels connected with others/family/visitors/staff [] Distress [] Loneliness/isolation [] Abandonment Spirituality of Patient [x] Person of Veena [] Attends Religious of their Veena [x] Believes in Prayer [] Reads Bible or Muslim materials [] There are Spiritual issues to be addressed Casting Agent Interventions [x] Prayer [x] Active listening [x] Non-anxious presence [x] Spiritual/emotional support [] Crisis/trauma care [x] Spiritual counseling [] Bereavement support [] Provided bereavement packet [] Provided Bible/devotional materials [] Provided toy/stuffed animal, coloring book to patient or family member [] Provided Communion [] Anointing/[place] [] Salvation [x] Completed spiritual assessment [] Other: Impact on Illness or Injury [] Angry [] Fearful [] Anxious [] Often cries [] Exhaustion [] Unable to work [] Unable to attend baptism [] Unable to walk/stand [] Unable to read [] Unable to drive [] Unable to eat/drink [] Unable to sleep [] Unable to be with family [] Patient intubated [] Other: Summary had surgery went well will be some recover time at home has a good attitude going home Time spent with patient 10 mins
[2022-04-14] MEDS: CELEcoxib 200 mg Capsule PO (10:40)
[2022-04-14 10:49] LABS: Glucose Point of Care 176 mg/dL (70-110)
[2022-04-14 11:32] VITALS: BP 107/66; PULSE 76; RESP 16; TEMP 36.8; O2SAT 93
[2022-04-14 12:58] VITALS: RESP 17
[2022-04-14] MEDS: insulin lispro 100 unit/1 mL SUBCUT (12:58)
--- NOTE | 2022-04-14 13:13 | PM.DCS ---
Discharge Providers Date of Admission: 04/13/22 15:15 Date of Discharge: April 14, 2022 Attending Provider at Admission: Andres Hart MD Attending Provider at Discharge: Andres Hart MD Primary Care Provider: GUY Weinberg Diagnoses at Discharge Discharge Diagnosis (1) Status post revision of total replacement of left knee: Status: Acute Reason for Visit Reason for Visit: Brief History: The patient is a 52-year-old female who underwent left total knee at [facility] a year and a half ago. She had persistent pain and instability and clear laxity of her knee on ligamentous exam. She was admitted to the hospital for elective revision of her left total knee arthroplasty Hospital Course Hospital Course The patient tolerated surgery well. They remained hemodynamically stable. They was begun on aspirin and foot pumps for DVT prophylaxis. The patient was mobilized with therapy beginning the day of surgery and by the first postoperative day independent with the walker. She will be placed in a hinged knee brace. She is unlock the brace in extension with weightbearing to protect her osteotomy. As the pain was adequately controlled and they were fully mobile they were discharged home. Physical Exam Narrative: On the day of discharge the knee incision was clean. They had no drainage. There is minimal swelling in the thigh and knee and the calf. No distal neurovascular deficits were noted Urinary Catheter Management: Nguyen: Cath Placed During This Visit: yes, but has since been removed by the nurse Reason for Continuing Indwelling Catheter: Required Immobilization for Trauma or Surgery or Anesthesia Urinary Catheter Date of Insertion: 04/13/22 Urinary Catheter Time of Insertion: 13:05 Date Urinary Catheter Removed: 04/14/22 Time Urinary Catheter Discontinued: 06:00 Discharge Data Studies Completed and Pending Completed Studies During Hospitalization Category Date Time Status XR knee LT 1-2V [id number] Routine Exams 04/13/22 15:51 Completed Radiology Impressions Knee X-Ray 04/13/22 15:51 IMPRESSION: 1. Total knee prosthesis in satisfactory position. The tibial component of the prosthesis has been replaced and revised. 2. Oblique fracture through the anterior cortex of the upper tibia without displacement. Laboratory Results Hgb 10.7 g/dL (11.5-15.3) L 04/14/22 03:33 POC Glucose 176 mg/dL (70-110) H 04/14/22 10:40 Vitals Last Vital Signs Temp 98.2 F 04/14/22 11:32 Pulse 76 04/14/22 11:32 Resp 17 04/14/22 12:58 BP 107/66 04/14/22 11:32 Pulse Ox 93 04/14/22 11:32 O2 Del Method 04/14/22 11:32 Discharge Plan Discharge Patient Disposition: Home Condition: Stable Prescriptions: New oxycodone 5 mg Tablet 5 mg PO Q4H PRN (Reason: Severe Pain) 7 Days Qty: 40 0RF acetaminophen 500 mg Tablet 1,000 mg PO Q8H 14 Days Qty: 84 0RF celecoxib 200 mg Capsule 200 mg PO Q12H 14 Days Qty: 28 0RF gabapentin 300 mg Capsule 300 mg PO BID 7 Days Qty: 14 0RF aspirin 325 mg Tablet,Delayed Release (Dr/Ec) 325 mg PO DAILY 30 Days Qty: 30 0RF Continued cetirizine [Zyrtec] 10 mg tablet 10 mg PO QAM fluticasone propionate [Allergy Relief (fluticasone)] 50 mcg/actuation spray,suspension 1 spray intranasal DAILY PRN (Reason: Allergy Symptoms) Rx Instructions: administer into each nostril multivitamin Tablet 1 tab PO QAM (DME) HINGED KNEE BRACE - RIGHT See Rx Instructions .Route .MEDSUPPLY Qty: 1 0RF Rx Instructions: As directed hydrocodone-acetaminophen 10-325 mg tablet 1 tab PO Q4H PRN (Reason: pain) 5 Days Qty: 20 0RF furosemide 40 mg tablet 40 mg PO DAILY Qty: 90 0RF nitroglycerin 0.4 mg Tablet, Sublingual 0.4 mg SUBLINGUAL Q5M PRN (Reason: chest pain) Rx Instructions: do not exceed 3 doses per episode metoprolol succinate 50 mg tablet extended release 24 hr 50 mg PO QAM spironolactone 25 mg tablet 25 mg PO QAM fenofibrate micronized 134 mg capsule 134 mg PO QPM metformin 1,000 mg tablet 1,000 mg PO BID potassium chloride 20 mEq tablet extended release 20 meq PO QAM aspirin 81 mg Tablet,Delayed Release (Dr/Ec) 81 mg PO QAM omega-3 fatty acids 500 mg Capsule 500 mg PO QPM atorvastatin 80 mg tablet 80 mg PO QPM clopidogrel [Plavix] 75 mg tablet 75 mg PO QPM pantoprazole [Protonix] 40 mg tablet,delayed release (DR/EC) 40 mg PO DAILY 30 Days Qty: 30 0RF Discharge Orders: Discharge Order (Routine); Ordered 04/14/22 Ordered By: Andres Hart Referrals: Andres Hart MD [Physician] - 2 weeks Discharge Diet: Advance as tolerated Discharge Activity: Limit activity as instructed Patient Instructions: Opioid Safety Activity Restrictions/Additional Instructions: Okay to shower Keep Tubigauze sleeve in place for swelling. Okay to remove for hygiene. Apply FirstIce up to 20 min/hr for pain and swelling Take Celebrex twice a day for the next 15 days for pain , discontinue other anti-inflammatories Take Neurontin twice a day for 7 days. Take Tylenol 500mg (2 tabs) as needed 3 times a day for mild pain Continue regular [place] 10 take oxycodone for breakthrough pain not controlled with [place]. Exercises per physical therapy. May weight-bear as tolerated on total knee arthroplasty Lock knee brace in extension when weightbearing. IF HAVE ANY PROBLEMS OR QUESTIONS CALL [facility] AT AND ASK TO HAVE DR. HART PAGED. Discharge Attestations Time Spent in Discharge Care*: other Quality Metrics Clinical Quality Measures [ No reported AMI, CVA or VTE this stay] Coding Level of Care Code Acute Chg FW DC note Diagnoses Status post revision of total replacement of left knee Z96.652
== END 2022-04-14 14:40 | disposition home or self-care (01) | DRG 468 ==
LOC: MEDSURG 04-14 01:57
PROVIDERS: Admitting Provider Orthopaedic Surgery; PCP Nurse Practitioner Family; Visit Provider Orthopaedic Surgery
PROC: 3E0T3BZ Introduction of Anesthetic Agent into Peripheral Nerves and Plexi, Percutaneous Approach (ICD-10-PCS; principal; 2022-04-13 12:00)
DX: T84.023A Instability of internal left knee prosthesis, initial encounter (principal); Y79.8 Miscellaneous orthopedic devices associated with adverse incidents, not elsewhere classified; Z88.0 Allergy status to penicillin; Z88.8 Allergy status to other drugs, medicaments and biological substances; Z91.09 Other allergy status, other than to drugs and biological substances; I11.0 Hypertensive heart disease with heart failure; I50.9 Heart failure, unspecified; M47.812 Spondylosis without myelopathy or radiculopathy, cervical region; M47.816 Spondylosis without myelopathy or radiculopathy, lumbar region; E78.5 Hyperlipidemia, unspecified; E11.9 Type 2 diabetes mellitus without complications; I25.10 Atherosclerotic heart disease of native coronary artery without angina pectoris; Z95.5 Presence of coronary angioplasty implant and graft; Z79.02 Long term (current) use of antithrombotics/antiplatelets; Z79.82 Long term (current) use of aspirin; Z79.84 Long term (current) use of oral hypoglycemic drugs; Z79.891 Long term (current) use of opiate analgesic; F17.200 Nicotine dependence, unspecified, uncomplicated
CPT/HCPCS: 36416; 51702; 73560; 82962; 85018; 96372; 97116; 97161; 97165; 97760; C1713; C1776; J0171; J0690; J1580; J1815; J1885; J2250; J2370; J2704; J2795; J3010; J7030; L1812

== ENCOUNTER → 2022-05-17 10:48 | Outpatient (BNVA) | payer BC, MEDICAID, SELFPAY | PROVIDERS: PCP Nurse Practitioner Family; Visit Provider Nurse Practitioner Family | DX: Z96.652 Presence of left artificial knee joint (principal) | CPT/HCPCS: 73560; 73565 ==

== ENCOUNTER 2022-05-19 08:13 | Day surgery (SDC) | payer BC, MEDICAID, SELFPAY ==
[2022-05-17 09:09] VITALS: BMI 25.0
--- NOTE | 2022-05-19 08:34 | W.PM.OPSFHP ---
Same Day Surgery H&P Indication for Procedure/HPI DATE OF PROCEDURE: May 19, 2022 CHIEF COMPLAINT/INDICATIONFOR SURGICAL PROCEDURE: History of colon polyps PREOP DIAGNOSIS: History of colon polyps/Unintentional weight loss PLANNED PROCEDURE: Operation Date: 05/19/22 09:45 Proposed Procedures p Colonoscopy 64004,Z86.101(Not Applicable) - Cristofer Huerta MD 03/03/2022 This is a pleasant 52 years old female patient with history of colon polyps removed before few years and was told they were precancerous.? She denies bleeding per rectum or history of colon cancer yet she does report nonintentional weight loss.? She is referred to my practice for surveillance colonoscopy.Unfortunately she is a smoker and she is not interested to stop smoking. 05/19/2022 Patient comes today for surveillance colonoscopy ROS All systems have been reviewed negative except as for the above or per problem list. Medications/Allergies* Home Medications Medication Instructions Recorded Confirmed Type cetirizine 10 mg tablet (Zyrtec) 10 mg PO QAM 05/19/21 05/19/22 History fluticasone propionate 50 1 spray intranasal DAILY PRN 05/19/21 05/19/22 History mcg/actuation nasal Allergy Symptoms spray,suspension (Allergy Relief (fluticasone)) multivitamin 1 tab PO QAM 05/19/21 05/19/22 History nitroglycerin 0.4 mg sublingual 0.4 mg sublingual Q5M PRN chest 12/13/21 05/19/22 History tablet pain aspirin 81 mg tablet,delayed 81 mg PO QAM 03/30/22 05/19/22 History release omega-3 fatty acids 500 mg capsule 500 mg PO QPM 03/30/22 05/19/22 History Allergies/Adverse Reactions Allergy/AdvReac Type Severity Reaction Status Date / Time lisinopril Allergy coughing Verified 05/19/22 08:36 Penicillins Allergy nausea Verified 05/19/22 08:36 adhesives Allergy peels Uncoded 05/19/22 08:36 skin, burn Pertinent History/Comorbid Conditions* Medical History (Updated 04/04/22 @ 20:23 by GUY Brito) Aftercare following surgery of the genitourinary system CHF (congestive heart failure) DJD (degenerative joint disease), cervical DJD (degenerative joint disease), lumbar Hyperlipidemia Hypertension Type 2 diabetes mellitus with cardiac complication Surgical History (Updated 04/14/22 @ 13:13 by Andres Sy MD) H/O of anterior colporrhaphy (~12/15/21) 12/15/2021- anterior colporrhaphy augmented with allograft, single incision mid urethral sling performed by Dr. Garrison at [facility] History of cholecystectomy History of lumpectomy of left breast fatty tumor History of partial hysterectomy Hx of heart artery stent Family History (Updated 07/02/21 @ 15:01 by Eloisa Espino LPN) Diabetes Father CAD (coronary artery disease) Mother Father Breast cancer Family/Other Maternal aunt Hypertension Mother Family/Other Maternal aunts and uncles Stroke Family/Other Maternal aunt Denies family history of Clotting disorder Hyperlipidemia Chronic kidney disease (CKD) Bleeding disorder Social History Smoking and tobacco status: current every day smoker Alcohol intake: never Household members: spouse Marital status: Highest education level completed: High School Graduate service: No Current occupational status: unemployed Pertinent Exam Findings alert, oriented x 3, regular rate & rhythm and procedure specific exam findings (Abdominal exam nontender nondistended soft) Recommendations Surgery/Procedure today (Colonoscopy with possible biopsy) Other Plans: Patient had recent left knee arthroplasty. We will plan to give her a dose of ciprofloxacin prior to the colonoscopy for potential prophylaxis against any chance of translocation of bacteria during the colonoscopy and seeding the prosthesis. Coding Level of Care Code Acute Equipment Engineering Technician for Naveen Rincon
[2022-05-19 08:42] VITALS: BP 113/84; PULSE 80; RESP 18; TEMP 36.2; O2SAT 97
[2022-05-19 08:50] LABS: Glucose Point of Care 126 mg/dL (70-110)
[2022-05-19] MEDS: sodium chloride 0.9% 1,000 ML 30 ML IV (09:00)
[2022-05-19] MEDS: ciprofloxacin 400 MG/200 ML PREMIX 200 MG IV (09:36)
--- NOTE | 2022-05-19 09:49 | ANES.PREANE2 ---
Pre-Anesthetic Assessment Height/Weight: Height 1.68 m Weight 70.307 kg Temp Pulse Resp BP Pulse Ox O2 Del Method 97.2 F L 80 18 113/84 97 05/19/22 08:42 05/19/22 08:42 05/19/22 08:42 05/19/22 08:42 05/19/22 08:42 05/19/22 08:42 Preop Diagnosis: History of colon polyps/Unintentional weight loss Operation Date: 05/19/22 09:45 Proposed Procedures p Colonoscopy 99960,Z86.101(Not Applicable) - Cristofer Huerta MD Familial anesthetic complications: None Was Beta Nat taken within 24 hours: Yes Was Clonidine taken within 24 hours: N/A Last intake: Intake Last Liquid Date 05/18/22 Last Liquid Time 20:00 Last Solid Date 05/17/22 Last Solid Time 20:00 Social Tobacco and No alcohol Exam alert, oriented x 3, clear to auscultation bilaterally and regular rate & rhythm Airway Mallampati: Class III Dentition: false CV/HEM Coronary Artery Disease, Congestive Heart Failure, Hypertension and Myocardial Infarction GI Gastroesophageal Reflux Disease Metabolic Diabetes Mellitus and Hyperlipidemia Anesthetic Plan ASA status: 3 Anesthesia: General and MAC Risk of > 500 ml blood loss (7ml/kg in children): No Medications/Allergies Home Medications Medication Instructions Recorded Confirmed Last Taken Type cetirizine 10 mg tablet (Zyrtec) 10 mg PO QAM 05/19/21 05/19/22 05/18/22 History fluticasone propionate 50 1 spray intranasal DAILY PRN 05/19/21 05/19/22 Unknown History mcg/actuation nasal Allergy Symptoms spray,suspension (Allergy Relief (fluticasone)) multivitamin 1 tab PO QAM 05/19/21 05/19/22 05/18/22 History nitroglycerin 0.4 mg sublingual 0.4 mg sublingual Q5M PRN chest 12/13/21 05/19/22 03/30/22 History tablet pain HINGED KNEE BRACE - RIGHT #1 ea 12/24/21 05/17/22 Unknown Rx furosemide 40 mg tablet 40 mg PO DAILY #90 tabs 03/21/22 05/19/22 05/18/22 Rx aspirin 81 mg tablet,delayed 81 mg PO QAM 03/30/22 05/19/22 05/18/22 History release omega-3 fatty acids 500 mg capsule 500 mg PO QPM 03/30/22 05/19/22 05/18/22 History hydrocodone 5 mg-acetaminophen 325 1 - 2 tab PO .4-6 PRN pain 5 days 04/22/22 05/19/22 05/17/22 Rx mg tablet #30 tabs atorvastatin 80 mg tablet 80 mg PO QPM #90 tabs 04/28/22 05/19/22 Unknown Rx clopidogrel 75 mg tablet (Plavix) 75 mg PO QPM #30 tabs 04/28/22 05/19/22 05/14/22 Rx pantoprazole 40 mg tablet,delayed 40 mg PO DAILY 90 days #90 tabs 05/05/22 05/19/22 05/18/22 Rx release (Protonix) fenofibrate micronized 134 mg 134 mg PO QPM #90 caps 05/11/22 05/19/22 05/18/22 Rx capsule metoprolol succinate 50 mg 50 mg PO QAM #90 tabs 05/11/22 05/19/22 05/19/22 Rx tablet,extended release 24 hr potassium chloride 20 mEq 20 meq PO QAM #90 tabs 05/11/22 05/19/22 Unknown Rx tablet,extended release spironolactone 25 mg tablet 25 mg PO QAM #90 tabs 05/11/22 05/19/22 05/18/22 Rx metformin 1,000 mg tablet 1,000 mg PO BID #180 tabs 05/18/22 05/19/22 05/18/22 Rx Allergies Allergy/AdvReac Type Severity Reaction Status Date / Time lisinopril Allergy coughing Verified 05/19/22 08:36 Penicillins Allergy nausea Verified 05/19/22 08:36 adhesives Allergy peels Uncoded 05/19/22 08:36 skin, burn Current Medications Generic Name Dose Route Start Last Admin Trade Name Freq PRN Reason Stop Dose Admin Sodium Chloride 1,000 mls @ 30 mls/hr 05/19/22 08:30 05/19/22 09:00 Sodium Chloride 0.9% IV 30 mls/hr .Q24H BRITTA Administration Ciprofloxacin/Dextrose 400 mg in 200 mls @ 200 mls/hr 05/19/22 09:19 05/19/22 09:36 Cipro IV 05/19/22 10:18 200 mls/hr BLOWER FEEDER DYED RAW STOCK ONE Administration Protocol [facility] Anesthesia Medical History Aftercare following surgery of the genitourinary system CHF (congestive heart failure) DJD (degenerative joint disease), cervical DJD (degenerative joint disease), lumbar Hyperlipidemia Hypertension Type 2 diabetes mellitus with cardiac complication Surgical History H/O of anterior colporrhaphy (~12/15/21) 12/15/2021- anterior colporrhaphy augmented with allograft, single incision mid urethral sling performed by Dr. Garrison at [facility] History of cholecystectomy History of lumpectomy of left breast fatty tumor History of partial hysterectomy Hx of heart artery stent Family History Mother CAD (coronary artery disease) Hypertension Father CAD (coronary artery disease) Diabetes Family/Other Breast cancer Maternal aunt Hypertension Maternal aunts and uncles Stroke Maternal aunt Denies family history of Clotting disorder Hyperlipidemia Chronic kidney disease (CKD) Bleeding disorder Social History Smoking and tobacco status: current every day smoker Alcohol intake: never Household members: spouse Marital status: Highest education level completed: High School Graduate service: No Current occupational status: unemployed Data Anesthesia Cardiac Studies: Echocardiogram 03/30/22 Sestamibi Stress Test (Cardiology) 03/31/22
[2022-05-19 10:25] VITALS: BP 114/65; PULSE 68; RESP 16; TEMP 36.4; O2SAT 100
[2022-05-19 10:40] VITALS: BP 124/68; PULSE 66; RESP 18; O2SAT 100
--- NOTE | 2022-05-19 15:47 | ANE.PACU2 ---
Inpatient post-anesthesia follow up: Airway intact: Yes Vital signs: Temperature 97.6 F Pulse Rate 66 Respiratory Rate 18 Blood Pressure 124/68 Pulse Oximetry 100 Oxygen Delivery Me thod Room Air Oxygen Flow Rate Fraction of Inspir ed Oxygen Hydration adequate: Yes Nausea and vomiting: No Pain level: 1 Mental status: Baseline
== END 2022-05-19 11:11 | disposition home or self-care (01) ==
PROVIDERS: PCP Nurse Practitioner Family; Visit Provider Surgery
PROC: 0DJD8ZZ Inspection of Lower Intestinal Tract, Via Natural or Artificial Opening Endoscopic (ICD-10-PCS; CPT 45378; principal; 2022-05-19 09:45)
DX: Z12.11 Encounter for screening for malignant neoplasm of colon (principal); Z86.010 Personal history of colon polyps; F17.210 Nicotine dependence, cigarettes, uncomplicated; Z79.82 Long term (current) use of aspirin; I11.0 Hypertensive heart disease with heart failure; I50.9 Heart failure, unspecified; E78.5 Hyperlipidemia, unspecified; E11.9 Type 2 diabetes mellitus without complications; I25.10 Atherosclerotic heart disease of native coronary artery without angina pectoris
CPT/HCPCS: 36416; 45385; 82962; 88305; J0744; J2704; J7030

== ENCOUNTER → 2022-06-08 15:46 | Outpatient (BNVA) | payer BC, MEDICAID, SELFPAY | PROVIDERS: PCP Nurse Practitioner Family; Visit Provider Nurse Practitioner Family | DX: Z96.652 Presence of left artificial knee joint (principal) | CPT/HCPCS: 73560; 73565 ==

== ENCOUNTER → 2022-06-27 14:48 | Outpatient (BNVA) | payer BC, MEDICAID, SELFPAY | PROVIDERS: PCP Nurse Practitioner Family; Visit Provider Nurse Practitioner Family | DX: N39.0 Urinary tract infection, site not specified (principal) | CPT/HCPCS: 81000; 87086 ==

== ENCOUNTER → 2022-06-28 14:45 | Outpatient (BNVA) | payer BC, MEDICAID, SELFPAY | PROVIDERS: PCP Nurse Practitioner Family; Visit Provider Orthopaedic Surgery | DX: Z96.652 Presence of left artificial knee joint (principal) | CPT/HCPCS: 73560; 73565 ==

== ENCOUNTER → 2022-08-10 14:48 | Outpatient (BNVA) | payer BC, MEDICAID, SELFPAY | PROVIDERS: PCP Nurse Practitioner Family; Visit Provider Orthopaedic Surgery | DX: M17.11 Unilateral primary osteoarthritis, right knee (principal); Z96.652 Presence of left artificial knee joint | CPT/HCPCS: 73560; 73565 ==

== ENCOUNTER → 2022-11-22 13:29 | Outpatient (BNVA) | payer BC, MEDICAID, SELFPAY | PROVIDERS: PCP Nurse Practitioner Family; Visit Provider Nurse Practitioner Family | DX: J06.9 Acute upper respiratory infection, unspecified (principal); E78.5 Hyperlipidemia, unspecified; R53.83 Other fatigue; E11.59 Type 2 diabetes mellitus with other circulatory complications; I10 Essential (primary) hypertension | CPT/HCPCS: 80053; 80061; 83036; 85025; 87426 ==

== ENCOUNTER → 2022-12-26 08:39 | Outpatient (BNVA) | payer BC, MEDICAID, SELFPAY | PROVIDERS: PCP Nurse Practitioner Family; Visit Provider Specialist | DX: M17.11 Unilateral primary osteoarthritis, right knee (principal); Z01.818 Encounter for other preprocedural examination | CPT/HCPCS: 73560; 73565; 80053; 81001; 83036; 85025 ==

== ENCOUNTER 2022-12-27 14:54 | Outpatient (CLI) | payer BC, MEDICAID, SELFPAY ==
--- NOTE | 2022-12-27 15:00 | CT_ITS ---
WS: [id number] CT RIGHT KNEE, NONCONTRAST TECHNIQUE: Noncontrast CT of the RIGHT knee to include the RIGHT hip and ankle. [facility] CLINICAL INFORMATION: M17.11 - Unilateral primary osteoarthritis, right knee COMPARISON: None. DLP: 949.[address] scans at [facility] use at least one of these dose optimization techniques: automated e xposure control; mA and/or kV adjustment per patient size (includes targeted exams where dose is matc hed to clinical indication); or iterative reconstruction. FINDINGS: LEFT TKA. Advanced tricompartmental arthritis RIGHT knee worse in the medial joint compartment with b one-on-bone articulation. Hypertrophic changes along the joint line. Suprapatellar effusion. Hypertro phic patella. Osteopenia. Mild degenerative narrowing both hips. Mild degenerative osteoarthritis sac roiliac joints. CT/CT knee RT [facility] IMPRESSION: Images obtained for preoperative purposes.
== END 2022-12-27 14:55 | disposition home or self-care (01) ==
LOC: RAD 14:54
PROVIDERS: PCP Nurse Practitioner Family; Visit Provider Specialist
DX: M17.11 Unilateral primary osteoarthritis, right knee (principal)
CPT/HCPCS: 73700

== ENCOUNTER 2023-01-02 10:17 | Observation (INO) | payer BC, MEDICAID, SELFPAY ==
[2022-12-30 13:45] VITALS: BMI 26.1
[2023-01-02] VITALS (17 sets, daily range): BP systolic 103–132; BP diastolic 62–82; PULSE 56–80; RESP 15–18; TEMP 36.1–37.3; O2SAT 94–100
[2023-01-02] MEDS: CELEcoxib 200 mg Capsule 400 MG PO (06:25)
[2023-01-02] MEDS: gabapentin 300 mg Capsule PO (06:25)
[2023-01-02] MEDS: acetaminophen 1,000 MG/100 ML PIGGYBACK 400 MG IV ×3 (06:35→22:13)
[2023-01-02 06:45] LABS: Glucose Point of Care 138 mg/dL (70-110)
[2023-01-02] MEDS: sodium chloride 0.9% 1,000 ML 30 ML IV (06:50)
[2023-01-02] MEDS: vancomycin 1,000 MG in sodium chloride 0.9% 250 ML 250 MG IV (06:50)
--- NOTE | 2023-01-02 06:53 | W.PM.OPSUD ---
Surgery/Procedure H&P Update DATE OF PROCEDURE: January 02, 2023 DATE H&P PERFORMED: 12/26/22 H&P UPDATE INFORMATION: I have reviewed H&P completed within last 30 days, I have examined patient prior to procedure, No changes to prior documentation and H&P is in [facility] EMR on date indicated PREOP DIAGNOSIS: Severe degenerative osteoarthritis right knee PLANNED PROCEDURE: Operation Date: 01/02/23 07:00 Proposed Procedures p RIGHT TOTAL KNEE ARHTROPLASTY WITH LIBERTAD GUIDANCE 34648, M17.11(Right) - Coreen Murphy MD Related Problem List Diagnoses (1) Osteoarthritis of right knee: Qualifiers: Osteoarthritis type: primary Qualified Code(s): M17.11 - Unilateral primary osteoarthritis, right knee
[2023-01-02] MEDS: tranexamic acid 1,000 mg/10mL SDV 1000 MG IV (07:57)
[2023-01-02] MEDS: vancomycin 1,000 MG SDV 3000 MG IRRIGATION (08:17)
--- NOTE | 2023-01-02 08:37 | P.ANESASSM_ITS ---
Pre-Anesthetic Assessment Height/Weight: Height 1.68 m Weight 73.482 kg Temp Pulse Resp BP Pulse Ox O2 Del Method 97.0 F L 75 18 131/76 97 Room Air 01/02/23 06:13 01/02/23 06:13 01/02/23 06:13 01/02/23 06:13 01/02/23 06:13 01/02/23 06:27 Preop Diagnosis: Severe degenerative osteoarthritis right knee Operation Date: 01/02/23 07:00 Proposed Procedures p RIGHT TOTAL KNEE ARHTROPLASTY WITH LIBERTAD GUIDANCE 62063, M17.11(Right) - Coreen Murphy MD Familial anesthetic complications: none Was Beta Nat taken within 24 hours: Yes Was Clonidine taken within 24 hours: N/A Last intake: Intake Last Liquid Date 01/01/23 Last Liquid Time 22:00 Last Solid Date 01/01/23 Last Solid Time 20:00 Social Tobacco and No alcohol Exam alert, oriented x 3, clear to auscultation bilaterally and regular rate & rhythm Airway Submandibular: within normal limits Cervical ROM: within normal limits Mallampati: Class II Dentition: false Pulmonary Chronic Obstructive Pulmonary Disease CV/HEM Coronary Artery Disease (stent) and Hypertension GI Gastroesophageal Reflux Disease Metabolic Diabetes Mellitus and Hyperlipidemia [facility] Osteoarthritis/DJD Anesthetic Plan ASA status: 3 Anesthesia: Regional (specify below) (SAB with right adductor blk) Medications/Allergies Home Medications Medication Instructions Recorded Confirmed Last Taken Type cetirizine 10 mg tablet (Zyrtec) 10 mg PO QAM 05/19/21 01/02/23 01/01/23 History fluticasone propionate 50 1 spray intranasal DAILY PRN 05/19/21 01/02/23 01/01/23 History mcg/actuation nasal Allergy Symptoms spray,suspension (Allergy Relief (fluticasone)) multivitamin 1 tab PO QAM 05/19/21 01/02/23 01/01/23 History nitroglycerin 0.4 mg sublingual 0.4 mg sublingual Q5M PRN chest 12/13/21 01/02/23 03/30/22 History tablet pain HINGED KNEE BRACE - RIGHT #1 ea 12/24/21 12/26/22 Unknown Rx aspirin 81 mg tablet,delayed 81 mg PO QAM 03/30/22 01/02/23 12/25/22 History release omega-3 fatty acids 500 mg capsule 500 mg PO QPM 03/30/22 01/02/23 12/25/22 History atorvastatin 80 mg tablet 80 mg PO QPM 12/30/22 01/02/23 01/01/23 History clopidogrel 75 mg tablet 75 mg PO QPM 12/30/22 01/02/23 12/25/22 History fenofibrate micronized 134 mg 134 mg PO DAILY 12/30/22 01/02/23 01/01/23 History capsule furosemide 40 mg tablet 40 mg PO DAILY 12/30/22 01/02/23 01/01/23 History metformin 1,000 mg tablet 1,000 mg PO BID 12/30/22 01/02/23 01/01/23 History metoprolol succinate 50 mg 50 mg PO QAM 12/30/22 01/02/23 01/02/23 History tablet,extended release 24 hr pantoprazole 40 mg tablet,delayed 40 mg PO DAILY 12/30/22 01/02/23 01/01/23 History release potassium chloride 20 mEq 20 meq PO QAM 12/30/22 01/02/23 01/01/23 History tablet,extended release spironolactone 25 mg tablet 25 mg PO DAILY 12/30/22 01/02/23 01/01/23 History Allergies Allergy/AdvReac Type Severity Reaction Status Date / Time lisinopril Allergy coughing Verified 01/02/23 06:09 Penicillins Allergy nausea Verified 01/02/23 06:09 adhesives Allergy peels Uncoded 01/02/23 06:09 skin, burn Current Medications Generic Name Dose Route Start Last Admin Trade Name Freq PRN Reason Stop Dose Admin Sodium Chloride 1,000 mls @ 30 mls/hr 01/02/23 06:00 01/02/23 06:50 Sodium Chloride 0.9% IV 01/03/23 05:59 30 mls/hr .Q24H BRITTA Administration PFSH Anesthesia Medical History Aftercare following surgery of the genitourinary system CHF (congestive heart failure) DJD (degenerative joint disease), cervical DJD (degenerative joint disease), lumbar Hyperlipidemia Hypertension Type 2 diabetes mellitus with cardiac complication Surgical History H/O of anterior colporrhaphy (~12/15/21) 12/15/2021- anterior colporrhaphy augmented with allograft, single incision mid urethral sling performed by Dr. Garrison at [facility] History of cholecystectomy History of lumpectomy of left breast fatty tumor History of partial hysterectomy Hx of heart artery stent Family History Mother CAD (coronary artery disease) Hypertension Father CAD (coronary artery disease) Diabetes Family/Other Breast cancer Maternal aunt Hypertension Maternal aunts and uncles Stroke Maternal aunt Denies family history of Clotting disorder Hyperlipidemia Chronic kidney disease (CKD) Bleeding disorder Social History Smoking and tobacco status: current every day smoker Alcohol intake: never Substance/Drug Use: never Adopted: No Lives independently: Yes Household members: spouse and family Marital status: Highest education level completed: High School Graduate service: No Current occupational status: unemployed Data Anesthesia Cardiac Studies: Echocardiogram 03/30/22 Sestamibi Stress Test (Cardiology) 03/31 Anesthesia Procedures Nerve Block Nerve Block 1: Main Anesthesia: spinal anesthesia block Time Out Performed: Yes Consent: requested by attending/covering physician, from patient, risks and benefits reviewed and patient agrees to proceed Nerve block location: adductor canal (right) Anesthesia monitors applied: pulse oximetry, EKG, BP cuff and oxygen Nerve block position: supine Anesthetic Used: ropivicaine 0.5% Amount of anesthesia used (mL): 20 Ultrasound used to: recognize landmarks Nerve Stimulator Used?: No Interscalene/Femoral BLK: 4 stimuplex 21 g needle used for position and inplane approach Injection: neg aspiration of heme Patient Tolerated Procedure: well Complications: none
--- NOTE | 2023-01-02 10:03 | PC.NURSE ---
Pt arrived to PACU, awake, resting comfortably, pt denies any pain or nausea at this time. Dressing to right knee C/D/I, right foot p/w/d, cap refill < 3 seconds, good pedal pulse noted. Ice pack applied. SCDs in place and running. Nguyen catheter patent and draining.
[2023-01-02 10:09] LABS: Glucose Point of Care 133 mg/dL (70-110)
--- NOTE | 2023-01-02 10:10 | PC.NURSE ---
Pt reports sensation above level L3.
--- NOTE | 2023-01-02 10:17 | XR_ITS ---
WS: [id number] Exam: XR knee RT 1-2V [id number] Date/Time of Exam: 01/02/2023 10:17 AM Reason For Exam: Status post right total knee arthroplasty Comparison 12/26/2022. Total knee prosthesis is in place in excellent position. Postoperative changes in the adjacent soft t issues. Anterior surgical skin clips. XR/XR knee RT 1-2V 43104 IMPRESSION: 1. Right total knee prosthesis in excellent position.
--- NOTE | 2023-01-02 10:28 | P.OP_ITS ---
Operative Report Date of procedure: January 02, 2023 Pre-op diagnosis: Degenerative osteoarthritis right knee with flexion contracture Post-op diagnosis: Degenerative osteoarthritis right knee with flexion contracture Post-op findings: Severe degenerative osteoarthritis primarily involving the medial compartment and patellofemoral joint. Large osteophytes and slight flexion contracture. Procedure done: Right total knee arthroplasty with Hemanth guidance Implants: The Sammie total knee system with a size 4 triathlon beaded cruciate retaining femur right, a triathlon titanium tibial component size 4 beaded, a triathlon X3 tibial bearing CS insert size 4 X 12 mm and a beaded triathlon titanium asymmetric patella size 32 x 10 mm Specimens removed/disposition: Bone, disposed of Pathology: none sent Surgeon: Coreen Murphy Jinrikisha Driver: [facility] operating room technicians Anesthesia: MAC (With spinal, ASA 3, preoperative adductor canal block) Estimated blood loss (mL): 200 Tourniquet time (min): 0 (Tourniquet not utilized) IV fluids (mL): 1,000 Urine output (mL): 600 Complications: None Findings: Severe degenerative osteoarthritis with slight flexion contracture Condition: stable Disposition: PACU (Then to floor for postoperative rehabilitation and pain management.) Brief History: Yodit Levy is a 52-year-old woman who presented to my office for evaluation of right knee pain. The patient had previously seen Dr. Sy and had been scheduled for right total knee arthroplasty today, January [address] Sy is no longer with the organization, I saw and evaluated the patient preoperatively and discussed her findings. The patient had findings consistent with severe degenerative osteoarthritis of the right knee. She had previously undergone left total knee arthroplasty requiring subsequent tibial revision. She is doing well with this. On the day she was seen in the office, consents were signed and questions were answered. Mignon Levy is a 52-year-old woman who presented to my office with complaints of significant right knee pain. Procedure: The patient was brought to the operating theater, and after undergoing spinal anesthesia with MAC and supplemental adductor block, ASA 3, the right lower extremity was prepped with Dura-Prep and draped in usual fashion following placement of a tourniquet high on the leg. The leg was then draped free.? Tourniquet was not elevated during the case.? A surgical pause was performed, and at the time of the surgical pause, we confirmed the site and side of surge ry. Additionally, we confirmed the appropriate and timely administration of preoperative antibiotics, vancomycin 1 g and Transexemic acid 1 g.? The availability of equipment was confirmed, and the patient's identity was verbalized as well.? An additional transexemic acid 1 g will be given on the floor as well. Following the surgical pause, an incision was made centering over the patella continuing proximally and distally as necessary to allow access to the knee joint. Dissection continued through skin and soft tissues using a scalpel. Hemostasis was obtained using electrocautery. The skin incision was followed by a median parapatellar arthrotomy. The leg was extended and the patella was able to be displaced laterally without difficulty.? Medial release was initially accomplished to allow placement for the Heamnth array.? Appropriate arrays and markers were placed in appropriate position for use of the Hemanth.? Preoperative planning had been accomplished and was discussed in detail with the Hemanth student services representative.? Intraoperative mapping of the femur and tibia was accomplished after the arrays were placed.? Internal markers were also placed.? Once we had accomplished the Hemanth mapping, we began the appropriate resections for placement of the prosthesis.? The plan was for a cruciate retaining right total knee arthroplasty. Once appropriate mapping had been accomplished retraction was established using manual retraction by surgical technicians and also the Hemanth leg positioner and retractors.? The knee was evaluated.? There was significant osteoarthritic change with significant osteophyte formation a flexion deformity along with varus malalignment.? The tibia was cut first with the Hemanth.? Subsequently, appropriate bone resection of the femur was accomplished using the Hemanth.? The f emur was sized to a size 4.? Osteophytes were removed prior to this portion of the procedure.? We had performed a medial release at the beginning of the procedure to allow for placement of the array and to allow for better planning with flexion and extension adjustments per Hemanth programming.? Proximal tibia was evaluated, and it was felt that appropriate size for the tibia was a size 4.? Tray was noted to fit nicely with good coverage.? Rim fit was accomplished with the size 4. A trial reduction was accomplished after osteophytes have been removed as well as the medial and lateral menisci.? We had removed the anterior cruciate ligament at the beginning of the case and preserved the posterior cruciate ligament.? Trial reduction was accomplished with a size 4 femoral cruciate retaining component and a size 4 tibial tray with a size 4 x 11 CS tibial bearing insert.? Alignment was felt to be appropriate.? Trial components were removed after the femur had been drilled.? Prior to removal of the tibial tray which had been pinned in position with appropriate rotation as determined by the Hemanth plan, we broached the tibia.? Subsequently, the 4 drill holes were made for the prosthetic component.? All trial components were removed, and the wound was irrigated.? After the trial reduction, we elected to increase the size of the tibial weightbearing insert to a size 12.? Plans were made for insertion of the prosthetic components.? Prior to this, the patella was manually prepared.? After resection of the articular surface with the jogging system, it was measured and measured a 32 mm patella.? We resected approximately 10 mm of patella.? Patellar height was restored with the patellar component. Once again, the wound was irrigated.? The Tritanium tibia was impacted into position.? The beaded femur was then impacted into position in a cementless fashion. The CS tibial insert was placed prior to placement of the femoral component. The patella was pressed into position with a patellar clamp.? Exparel was injected about the components deep and superficially.? The knee was then copiously irrigated with betadine and saline and suctioned dry.? Further irrigation was accomplished with saline following the Betadine.? Attention was then directed to closure. Closure was accomplished with 0 Vicryl in the fascial tissues.? This was followed by Surgiflo and vancomycin powder.? Following this, a 2-0 Monocryl was used in the subcutaneous tissues, and the skin was closed with skin joe.? Care was taken to assure an excellent subcutaneous as well as skin closure.? A sterile dressing was then placed consisting of Dermabond Prineo, OpSite, sterile soft roll including over the foot, and an Gary wrap. The patient was returned the Recovery Room in a satisfactory condition. X-rays were obtained and reviewed there.? The patient will be discharged to the floor for postoperative rehabilitation and pain management. Related Problem List Diagnoses (1) Osteoarthritis of right knee:
[2023-01-02] MEDS: chlorhexidine gluconate 0.12% Btl 473 mL 30 ML MUCOUS MEM ×3 (13:13→20:42)
--- NOTE | 2023-01-02 14:32 | ANE.PACU2 ---
Inpatient post-anesthesia follow up: Airway intact: Yes Vital signs: Temperature 97.9 F Pulse Rate 62 Respiratory Rate 18 Blood Pressure 113/76 Pulse Oximetry 100 Oxygen Delivery Me thod Room Air Oxygen Flow Rate 2 Fraction of Inspir ed Oxygen Hydration adequate: Yes Nausea and vomiting: No Pain level: 1 Mental status: Baseline
[2023-01-02] MEDS: oxyCODONE 5 mg IR Tab/Cap PO (16:38)
[2023-01-02] MEDS: calcium carbonate 500 mg Chew Tablet 1000 MG PO (17:17)
[2023-01-02] MEDS: iron polysaccharide complex 150 mg Capsule PO (17:17)
[2023-01-02] MEDS: clopidogrel 75 mg Tablet PO (17:18)
[2023-01-02] MEDS: metformin 500 mg Tablet 1000 MG PO (17:18)
[2023-01-02] MEDS: CELEcoxib 200 mg Capsule PO (17:18)
[2023-01-02] MEDS: atorvastatin 40 mg Tablet 80 MG PO (17:18)
[2023-01-02] MEDS: sennosides-docusate Tablet 2 TAB PO (17:18)
[2023-01-02] MEDS: HYDROcodone-acetaminophen 10-325 mg Tablet 1 TAB PO ×2 (19:37→23:36)
[2023-01-03 03:22] VITALS: BP 103/65; PULSE 78; RESP 17; TEMP 36.7; O2SAT 95
[2023-01-03] MEDS: HYDROcodone-acetaminophen 10-325 mg Tablet 1 TAB PO ×2 (03:28→09:49)
[2023-01-03] MEDS: metoprolol succinate ER (24 HR) 50 mg Tablet PO (06:02)
[2023-01-03] MEDS: cetirizine 10 mg Tablet PO (06:02)
[2023-01-03] MEDS: CELEcoxib 200 mg Capsule PO (06:02)
[2023-01-03] MEDS: acetaminophen 1,000 MG/100 ML PIGGYBACK 400 MG IV (06:03)
[2023-01-03] MEDS: potassium chloride ER 20 mEq Tablet PO (06:09)
[2023-01-03 06:15] LABS: Basophils % 0.4 %; Eosinophils # 0.4 10^3/uL (0.0-0.8); Hematocrit 31.3 % (37.0-47.0); Hemoglobin 10.2 g/dL (11.5-15.3); Lymphocytes # 1.5 10^3/uL (0.8-4.8); Lymphocytes % 19.9 %; Mean Corpuscular HGB Conc 32.6 g/dL (30.0-36.0); Mean Corpuscular Hemoglobin 29.8 pg (28.0-34.0); Mean Corpuscular Volume 91.5 fl (81-99); Mean Platelet Volume 10.9 fL (7.4-10.4); Monocytes # 0.7 10^3/uL (0.2-0.9); Neutrophils # 4.74 10^3/uL (1.8-7.7); Neutrophils % 64.3 %; Nucleated Red Blood Cells % 0 %; Platelet Count 240 10^3/cmm (130-400); Red Blood Count 3.42 10^6/uL (4.1-5.3); White Blood Count 7.4 10^3/uL (4.0-10.0)
[2023-01-03] MEDS: vancomycin 1,000 MG in sodium chloride 0.9% 250 ML 250 MG IV (06:31)
[2023-01-03 06:42] LABS: Anion Gap 12.1 (5-19); Blood Urea Nitrogen 11 mg/dL (6-20); Calcium 8.6 mg/dL (8.5-10.5); Carbon Dioxide 24 mmol/L (22-29); Chloride 103 mmol/L (98-107); Glomerular Filtration Rate 104.2 mL/min (90-130); Glucose 165 mg/dL (65-115); Osmolality Calculated 283 mOsm/kg (285-295); Potassium 4.1 mmol/L (3.5-5.1); Sodium 135 mmol/L (136-145)
[2023-01-03 07:33] VITALS: BP 100/63; PULSE 72; RESP 18; TEMP 36.7; O2SAT 93
[2023-01-03] MEDS: metformin 500 mg Tablet 1000 MG PO (07:58)
[2023-01-03] MEDS: iron polysaccharide complex 150 mg Capsule PO (07:58)
[2023-01-03] MEDS: aspirin 325 mg EC Tablet PO (08:00)
[2023-01-03] MEDS: cholecalciferol (vitamin D3) 1,000 unit Tablet 1000 UNIT PO (08:00)
[2023-01-03] MEDS: multivitamin therapeutic Tablet 1 TAB PO (08:00)
[2023-01-03] MEDS: calcium carbonate 500 mg Chew Tablet 1000 MG PO (08:00)
[2023-01-03] MEDS: pantoprazole DR 40 mg Tablet PO (08:00)
[2023-01-03] MEDS: FUROsemide 40 mg Tablet PO (08:00)
[2023-01-03] MEDS: chlorhexidine gluconate 0.12% Btl 473 mL 30 ML MUCOUS MEM (08:01)
[2023-01-03] MEDS: sennosides-docusate Tablet 2 TAB PO (08:01)
[2023-01-03] MEDS: spironolactone 25 mg Tablet PO (08:01)
[2023-01-03] MEDS: mupirocin oint 22 gm 1 APPLIC NASAL (08:02)
--- NOTE | 2023-01-03 10:03 | PC.CHAP ---
Pastoral Care Encounter/Spiritual Assessment Type of Contact [] Declined event attendant visit [] Patient/Family/Request visit [] Outpatient visit [] Follow-up visit [] Physician referral [] Code/Alert [x] Routine visit [] Staff referral [] Actively dying [] Patient sleeping [x] Family support [] [] Out of room [] Palliative care [] [] Receiving care in room [] Pre-surgical visit [] Trauma [] Long length of stay [] ICU visit [] Other: Relational/Emotional Strength [x] Patient feels connected with others/family/visitors/staff [] Distress [] Loneliness/isolation [] Abandonment Spirituality of Patient [x] Person of Veena [] Attends Christian of their Veena [x] Believes in Prayer [] Reads Bible or Islam materials [] There are Spiritual issues to be addressed Vice President Integrated Interventions [x] Prayer [x] Active listening [] Non-anxious presence [x] Spiritual/emotional support [] Crisis/trauma care [] Spiritual counseling [] Bereavement support [] Provided bereavement packet [] Provided Bible/devotional materials [] Provided toy/stuffed animal, coloring book to patient or family member [] Provided Communion [] Anointing/[place] [] Salvation [x] Completed spiritual assessment [] Other: Impact on Illness or Injury [] Angry [] Fearful [] Anxious [] Often cries [] Exhaustion [] Unable to work [] Unable to attend latter-day [] Unable to walk/stand [] Unable to read [] Unable to drive [] Unable to eat/drink [] Unable to sleep [] Unable to be with family [] Patient intubated [] Other: Summary Time spent with patient 5 min
[2023-01-03 11:33] VITALS: BP 119/74; PULSE 73; RESP 16; TEMP 36.8; O2SAT 94
--- NOTE | 2023-01-03 15:32 | P.DS_ITS ---
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 The patient had previously seen Dr. Sy and had been scheduled for right total knee arthroplasty today, January 02 as well.? As Dr. Sy is no longer with the organization, I saw and evaluated the patient preoperatively and discussed her findings.? The patient had findings consistent with severe degenerative osteoarthritis of the right knee.? She had previously undergone left total knee arthroplasty requiring subsequent tibial revision.? She is doing well with this.? On the day she was seen in the office, consents were signed and questions were answered.? Mignon Levy is a 52-year-old woman who presented to my office with complaints of significant right knee pain. Hospital Course Hospital Course This 52-year-old woman presented for primary right total knee arthroplasty. Previously, she had a primary left total knee done elsewhere which required revision of the tibial component. She has recovered from this, and she now presents for right total knee arthroplasty. Preoperatively, the patient was evaluated and found to be appropriate candidate for total knee arthroplasty. Risks and complications were discussed with her. Consents were signed, she presented on the day of surgery and had an uneventful right total knee arth roplasty with Hemanth guidance. She was admitted overnight in the hospital for observation and for initiation of postoperative knee rehabilitation. She has tolerated this well, and per PT, is doing very well with her activities of daily living. She therefore will be discharged to home with home health to follow-up with me in the office as scheduled. Physical Exam Const: COMMON NORMALS: no acute distress, average body habitus, patient oriented x3 and alert GENERAL APPEARANCE: cooperative and comfortable ORIENTATION/CONSCIOUSNESS: Yes awake HENMT: COMMON NORMALS: normocephalic and atraumatic HEAD & SCALP: normocephalic and atraumatic Eye: GENERAL EYE: appearance normal, both eyes and all related structures Chest: COMMONS NORMALS: normal inspection of the chest Resp: COMMON NORMALS: normal respiratory effort EFFORT & INSPECTION: Yes able to speak in complete sentences and Yes symmetric chest movement Extremity: RIGHT LOWER EXTREMITY: Yes knee joint (Large outer dressing removed. Under dressing dry and intact) Right knee: Yes inspection (No evidence of DVT.), Yes palpation (Minimal tenderness.) and Yes neurovascular exam (Intact distally.) Neuro: COMMON NORMALS: patient oriented x3 SENSORIUM/ORIENTATION: Yes alert Psych: COMMON NORMALS: mental status grossly normal APPEARANCE: Yes grossly normal ATTITUDE: Yes calm and Yes engaged ATTENTION/CONCENTRATION: Yes attention grossly intact Skin: COMMON NORMALS: no rashes or lesions noted GENERAL SKIN EXAM: no rashes or lesions noted Urinary Catheter Management: Nguyen: Cath Placed During This Visit: yes, but has since been removed by the nurse Reason for Continuing Indwelling Catheter: Decision to DC Catheter Urinary Catheter Date of Insertion: 01/02/23 Urinary Catheter Time of Insertion: 07:35 Date Urinary Catheter Removed: 01/02/23 Time Urinary Catheter Discontinued: 17:31 Discharge Data Studies Completed and Pending Completed Studies During Hospitalization Category Date Time Status XR knee RT 1-2V [id number] Urgent Exams 01/02/23 10:17 Completed Radiology Impressions Knee X-Ray 01/02/23 10:17 IMPRESSION: 1. Right total knee prosthesis in excellent position. Laboratory Results WBC 7.4 10^3/uL (4.0-10.0) 01/03/23 05:25 RBC 3.42 10^6/uL (4.1-5.3) L 01/03/23 05:25 Hgb 10.2 g/dL (11.5-15.3) L 01/03/23 05:25 Hct 31.3 % (37.0-47.0) L 01/03/23 05:25 MCV 91.5 fl (81-99) 01/03/23 05:25 MCH 29.8 pg (28.0-34.0) 01/03/23 05:25 MCHC 32.6 g/dL (30.0-36.0) 01/03/23 05:25 RDW 13.0 % (12.1-15.1) 01/03/23 05:25 Plt Count 240 10^3/cmm (130-400) 01/03/23 05:25 MPV 10.9 fL (7.4-10.4) H 01/03/23 05:25 Neut % (Auto) 64.3 % 01/03/23 05:25 Lymph % (Auto) 19.9 % 01/03/23 05:25 Coleman % (Auto) 10.0 % 01/03/23 05:25 Eos % (Auto) 5.0 % 01/03/23 05:25 Baso % (Auto) 0.4 % 01/03/23 05:25 Neut # (Auto) 4.74 10^3/uL (1.8-7.7) 01/03/23 05:25 Lymph # (Auto) 1.5 10^3/uL (0.8-4.8) 01/03/23 05:25 Coleman # (Auto) 0.7 10^3/uL (0.2-0.9) 01/03/23 05:25 Eos # (Auto) 0.4 10^3/uL (0.0-0.8) 01/03/23 05:25 Baso # (Auto) 0.0 10^3/uL (0.0-0.1) 01/03/23 05:25 Nucleated RBC % (auto) 0 % 01/03/23 05:25 Nucleated RBCs # 0.0 /100WBC 01/03/23 05:25 Sodium 135 mmol/L (136-145) L 01/03/23 05:25 Potassium 4.1 mmol/L (3.5-5.1) 01/03/23 05:25 Chloride 103 mmol/L (98-107) 01/03/23 05:25 Carbon Dioxide 24 mmol/L (22-29) 01/03/23 05:25 Anion Gap 12.1 (5-19) 01/03/23 05:25 BUN 11 mg/dL (6-20) 01/03/23 05:25 Creatinine 0.6 mg/dL (0.5-0.9) 01/03/23 05:25 GFR Calculation 104.2 mL/min (90-130) 01/03/23 05:25 Glucose 165 mg/dL (65-115) H 01/03/23 05:25 POC Glucose 133 mg/dL (70-110) H 01/02/23 10:06 Calculated Osmolality 283 mOsm/kg (285-295) L 01/03/23 05:25 Calcium 8.6 mg/dL (8.5-10.5) 01/03/23 05:25 Vitals Last Vital Signs Temp 98.2 F 01/03/23 11:33 Pulse 73 01/03/23 11:33 Resp 16 01/03/23 11:33 BP 119/74 01/03/23 11:33 Pulse Ox 94 01/03/23 11:33 O2 Del Method Room Air 01/03/23 11:33 O2 Flow Rate 2 01/03/23 08:00 Discharge Plan Discharge Patient Disposition: Home Health Service Condition: Stable Prescriptions: New celecoxib 200 mg Capsule 200 mg PO 1XD 30 Days Qty: 30 0RF hydrocodone-acetaminophen 10-325 mg Tablet 1 tab PO Q4H PRN (Reason: Moderate Pain) 7 Days Qty: 30 0RF Continued cetirizine [Zyrtec] 10 mg tablet 10 mg PO QAM fluticasone propionate [Allergy Relief (fluticasone)] 50 mcg/actuation spray,suspension 1 spray intranasal DAILY PRN (Reason: Allergy Symptoms) Rx Instructions: administer into each nostril multivitamin Tablet 1 tab PO QAM (DME) HINGED KNEE BRACE - RIGHT See Rx Instructions .Route .MEDSUPPLY Qty: 1 0RF Rx Instructions: As directed nitroglycerin 0.4 mg Tablet, Sublingual 0.4 mg SUBLINGUAL Q5M PRN (Reason: chest pain) Rx Instructions: do not exceed 3 doses per episode aspirin 81 mg Tablet,Delayed Release (Dr/Ec) 81 mg PO QAM Hold Instructions: Resume on 02/03/23. Resume after 30 days of full-strength aspirin omega-3 fatty acids 500 mg Capsule 500 mg PO QPM furosemide 40 mg tablet 40 mg PO DAILY atorvastatin 80 mg tablet 80 mg PO QPM metoprolol succinate 50 mg tablet extended release 24 hr 50 mg PO QAM clopidogrel 75 mg tablet 75 mg PO QPM spironolactone 25 mg tablet 25 mg PO DAILY fenofibrate micronized 134 mg capsule 134 mg PO DAILY pantoprazole 40 mg tablet,delayed release (DR/EC) 40 mg PO DAILY metformin 1,000 mg tablet 1,000 mg PO BID Patient Comments: held PM dose potassium chloride 20 mEq tablet extended release 20 meq PO QAM Discharge Orders: Discharge Order (Routine); Ordered 01/03/23 Ordered By: Coreen Murphy Referrals: Coreen Murphy MD [Physician] - 01/17/23 9:45 am Discharge Diet: Advance as tolerated and Usual diet Discharge Activity: Increase activity as tolerated, Limit activity as instructed, Use walker/crutches as instructed and As per PT/OT instructions Patient Instructions: Hydrocodone/Acetaminophen (By mouth), Celecoxib (By mouth), Total Hip Replacement (DC), Opioid Safety Activity Restrictions/Additional Instructions: Weightbearing as tolerated. Range of motion, strengthening, and gait training per physical therapy. You may shower, but do not soak your knee in water. Discharge Attestations Time Spent in Discharge Care*: greater than 30 min Specific Discharge Activities: educating patient, documenting/other paperwork and evaluating patient/reviewing data Quality Metrics Clinical Quality Measures [ No reported AMI, CVA or VTE this stay] Coding Level of Care Code Acute Code for [facility] Diagnoses Osteoarthritis of right knee M17.11 Osteoarthritis type: primary Status post total right knee replacement not using cement Z96.651
[2023-01-03 16:40] VITALS: BP 119/74; PULSE 73; RESP 16; TEMP 36.8; O2SAT 94
== END 2023-01-03 15:55 | disposition home health service (06) ==
LOC: MEDSURG 10:32
PROVIDERS: Admitting Provider Specialist; PCP Nurse Practitioner Family; Visit Provider Specialist
PROC: 8E0Y0CZ Robotic Assisted Procedure of Lower Extremity, Open Approach (ICD-10-PCS; CPT 27447; principal; 2023-01-02 07:00)
DX: M17.11 Unilateral primary osteoarthritis, right knee (principal); Z79.82 Long term (current) use of aspirin; Z79.02 Long term (current) use of antithrombotics/antiplatelets; Z79.84 Long term (current) use of oral hypoglycemic drugs; J44.9 Chronic obstructive pulmonary disease, unspecified; I25.10 Atherosclerotic heart disease of native coronary artery without angina pectoris; I10 Essential (primary) hypertension; Z95.5 Presence of coronary angioplasty implant and graft; E11.9 Type 2 diabetes mellitus without complications; E78.5 Hyperlipidemia, unspecified; F17.200 Nicotine dependence, unspecified, uncomplicated
CPT/HCPCS: 20985; 27447; 36415; 36416; 51702; 73560; 80048; 82962; 85025; 97110; 97116; 97161; 97165; C1776; C9290; G0378; J0131; J2250; J2704; J3370; J3490; J7030; J7050

== ENCOUNTER → 2023-01-17 09:44 | Outpatient (BNVA) | payer BC, MEDICAID, SELFPAY | PROVIDERS: PCP Nurse Practitioner Family; Visit Provider Nurse Practitioner Family | DX: Z96.651 Presence of right artificial knee joint (principal) | CPT/HCPCS: 73560; 73565 ==

== ENCOUNTER → 2023-02-01 10:24 | Outpatient (BNVA) | payer BC, MEDICAID, SELFPAY | PROVIDERS: PCP Nurse Practitioner Family; Visit Provider Nurse Practitioner Family | DX: N39.0 Urinary tract infection, site not specified (principal) | CPT/HCPCS: 81000; 87077; 87086; 87184 ==

== ENCOUNTER 2023-02-17 13:01 | Outpatient (CLI) | payer BC, MEDICAID, SELFPAY ==
--- NOTE | 2023-02-17 13:12 | MM_ITS ---
WS: [id number] BILATERAL 3D TOMOSYNTHESIS DIGITAL SCREENING MAMMOGRAPHY WITH CAD CLINICAL INFORMATION: Z12.31 - Encounter for screening mammogram for malignant ... HISTORY: Screening mammogram. No current complaints. COMPARISON: 2018. TECHNIQUE: Bilateral CC and MLO views. FINDINGS: Scattered fibroglandular densities bilaterally. No suspicious focal mass, asymmetry, calcifications, or architectural distortion. No evidence of malignancy. Incidental bilateral punctate calcifications. IMPRESSION: MM/[id number] BI-RADS: 2-Benign FOLLOW UP: 1 Year Follow-up Recommend return to annual screening mammography.
== END 2023-02-17 13:02 | disposition home or self-care (01) ==
LOC: RAD 13:03 → MOBLMAM 13:12
PROVIDERS: PCP Nurse Practitioner Family; Visit Provider Obstetrics & Gynecology
DX: Z12.31 Encounter for screening mammogram for malignant neoplasm of breast (principal); Z96.653 Presence of artificial knee joint, bilateral
CPT/HCPCS: 73560; 73565; 77063; 77067

== ENCOUNTER → 2023-04-06 11:35 | Outpatient (BNVA) | payer BC, MEDICAID, SELFPAY | PROVIDERS: PCP Nurse Practitioner Family; Visit Provider Nurse Practitioner | DX: Z96.651 Presence of right artificial knee joint (principal); M25.561 Pain in right knee | CPT/HCPCS: 73560; 73565 ==

== ENCOUNTER → 2023-04-07 10:12 | Outpatient (BNVA) | payer BC, MEDICAID, SELFPAY | PROVIDERS: PCP Nurse Practitioner Family; Visit Provider Nurse Practitioner Family | DX: N39.0 Urinary tract infection, site not specified (principal); R31.9 Hematuria, unspecified | CPT/HCPCS: 81000; 87077; 87086; 87184 ==

== ENCOUNTER → 2023-04-14 08:25 | Outpatient (BNVA) | payer BC, MEDICAID, SELFPAY | PROVIDERS: PCP Nurse Practitioner Family; Visit Provider Nurse Practitioner Family | DX: N39.0 Urinary tract infection, site not specified (principal) | CPT/HCPCS: 87086 ==

== ENCOUNTER → 2023-05-08 09:33 | Outpatient (BNVA) | payer BC, MEDICAID, SELFPAY | PROVIDERS: PCP Nurse Practitioner Family; Visit Provider Nurse Practitioner | DX: Z96.651 Presence of right artificial knee joint (principal); M17.11 Unilateral primary osteoarthritis, right knee | CPT/HCPCS: 73560; 73565 ==

== ENCOUNTER → 2023-07-20 08:10 | Outpatient (BNVA) | payer OTHER, SELFPAY | PROVIDERS: PCP Nurse Practitioner Family; Visit Provider Nurse Practitioner Family | DX: R53.83 Other fatigue (principal); E78.5 Hyperlipidemia, unspecified; I10 Essential (primary) hypertension; E11.59 Type 2 diabetes mellitus with other circulatory complications | CPT/HCPCS: 80053; 80061; 83036; 85025 ==

== ENCOUNTER → 2023-10-11 16:27 | Outpatient (BNVA) | payer OTHER, SELFPAY | PROVIDERS: PCP Nurse Practitioner Family; Visit Provider Nurse Practitioner Family | DX: R53.83 Other fatigue (principal) | CPT/HCPCS: 84439; 84443 ==

== ENCOUNTER → 2023-10-25 08:33 | Outpatient (BNVA) | payer OTHER, SELFPAY | PROVIDERS: PCP Nurse Practitioner Family; Visit Provider Nurse Practitioner Family | DX: E11.59 Type 2 diabetes mellitus with other circulatory complications (principal); E78.5 Hyperlipidemia, unspecified | CPT/HCPCS: 83036; 83721; 84478 ==

== ENCOUNTER → 2023-12-12 16:06 | Outpatient (BNVA) | payer OTHER, SELFPAY | PROVIDERS: PCP Nurse Practitioner Family; Visit Provider Nurse Practitioner Family | DX: R30.0 Dysuria (principal); N39.0 Urinary tract infection, site not specified | CPT/HCPCS: 81000; 87086 ==

== ENCOUNTER → 2024-01-03 15:08 | Outpatient (BNVA) | payer OTHER, SELFPAY | PROVIDERS: PCP Nurse Practitioner Family; Visit Provider Nurse Practitioner Family | DX: N30.01 Acute cystitis with hematuria (principal); N39.0 Urinary tract infection, site not specified | CPT/HCPCS: 81000; 87077; 87086; 87184 ==

== ENCOUNTER → 2024-01-16 08:08 | Outpatient (BNVA) | payer OTHER, SELFPAY | PROVIDERS: PCP Nurse Practitioner Family; Visit Provider Nurse Practitioner Family | DX: N39.0 Urinary tract infection, site not specified (principal) | CPT/HCPCS: 81000; 87086 ==

== ENCOUNTER 2024-02-28 15:19 | Outpatient (CLI) | payer OTHER, SELFPAY ==
--- NOTE | 2024-02-28 15:20 | MM_ITS ---
WS: [id number] BILATERAL 3D TOMOSYNTHESIS DIGITAL SCREENING MAMMOGRAPHY WITH CAD CLINICAL INFORMATION: Z12.31 - Encounter for screening mammogram for malignant ... HISTORY: Screening mammogram. No current complaints. COMPARISON: 2022 TECHNIQUE: Bilateral CC and MLO views. FINDINGS: The breasts are composed of heterogeneous fibroglandular density tissue, which can limit the detectio n of small underlying mass lesions. No suspicious mass, asymmetry, calcifications, or architectural d istortion. No evidence of malignancy. Incidental punctate calcifications bilaterally. MM/[id number] IMPRESSION: DENSITY:The breasts are heterogeneously dense, which may obscure small masses. BI-RADS: 2 - Benign FOLLOW UP: 1 Year Follow-up Recommend return to annual screening mammography.
== END 2024-02-28 15:20 | disposition home or self-care (01) ==
LOC: MOBLMAM 15:22
PROVIDERS: PCP Obstetrics & Gynecology; Visit Provider Obstetrics & Gynecology
DX: Z12.31 Encounter for screening mammogram for malignant neoplasm of breast (principal)
CPT/HCPCS: 77063; 77067

== ENCOUNTER → 2024-05-21 07:31 | Outpatient (BNVA) | payer OTHER, SELFPAY | PROVIDERS: PCP Nurse Practitioner Family; Visit Provider Nurse Practitioner Family | DX: E78.2 Mixed hyperlipidemia (principal); E11.59 Type 2 diabetes mellitus with other circulatory complications; R53.83 Other fatigue; I10 Essential (primary) hypertension | CPT/HCPCS: 80053; 80061; 83036; 83721; 85025 ==

== ENCOUNTER → 2024-10-28 08:13 | Outpatient (BNVA) | payer OTHER, SELFPAY | PROVIDERS: PCP Nurse Practitioner Family; Visit Provider Nurse Practitioner Family | DX: I10 Essential (primary) hypertension (principal); R53.83 Other fatigue; E11.59 Type 2 diabetes mellitus with other circulatory complications; E78.2 Mixed hyperlipidemia | CPT/HCPCS: 80053; 80061; 83036; 85025 ==

== ENCOUNTER → 2025-04-23 10:08 | Outpatient (BNVA) | payer OTHER, SELFPAY | PROVIDERS: PCP Nurse Practitioner Family; Visit Provider Nurse Practitioner Family | DX: I10 Essential (primary) hypertension (principal); E11.59 Type 2 diabetes mellitus with other circulatory complications; R53.83 Other fatigue; E78.2 Mixed hyperlipidemia | CPT/HCPCS: 80053; 80061; 83036; 85025 ==